=== PATIENT | male | born 1990 | race Caucasian/White ===

== ENCOUNTER 2021-06-28 12:54 | Emergency (ER) | payer OTHER, SELFPAY ==
[2021-06-28 13:00] VITALS: BP 146/102; PULSE 94; RESP 16; TEMP 37.1; O2SAT 100
--- NOTE | 2021-06-28 13:35 | ED.NAVMDI ---
HPI - Nausea/Vomiting/Diarrhea General Chief complaint: Nausea/Vomiting/Diarrhea Stated complaint: stomach pain/vomiting/diarrhea/no energy Time Seen by Provider: 06/28/21 13:30 Source: patient and RN notes reviewed Mode of arrival: ambulatory Limitations: no limitations History of Present Illness HPI Narrative: 30-year-old male presents with concern for 4-day history of body aches, fatigue, chills, sweats, nausea, vomiting, diarrhea, cough. He reports he was out over the weekend around a crowd of people at bars. He reports he has not been vaccinated for Covid. He denies measured fever. Reports he had Covid July 2020. MD elicited complaint: nausea and vomiting Related Data Home Medications Medication Instructions Recorded Confirmed omeprazole 20 mg PO DAILY 06/28/21 06/28/21 Allergies Allergy/AdvReac Type Severity Reaction Status Date / Time No Known Allergies Allergy Mild Verified 06/28/21 13:02 Review of Systems Review of Systems: CONSTITUTIONAL: Reports fatigue, malaise, chills, sweats. Denies fever. EYES: Denies visual changes, redness, or discharge. ENT: Denies rhinorrhea, congestion, sinus pain, otalgia or sore throat. CARDIOVASCULAR: Denies chest pain, palpitations, or edema. RESPIRATORY: Reports cough. Denies dyspnea. GASTROINTESTINAL: Denies abdominal pain, bloody, or mucous stools. Reports nausea, vomiting, diarrhea, MUSCULOSKELETAL: Reports myalgia. NEUROLOGIC: Reports headache. All systems reviewed & are unremarkable except as noted in HPI and below PMFSH Social History Social History Smoking status: Never smoker Alcohol intake: current Comments At time of signature, agree with nursing past medical, surgical, social and family history. There is no relevant family history pertinent to the presenting complaint Exam Narrative: GENERAL: Well-appearing, well-nourished, and in no acute distress. HEAD: Normocephalic, atraumatic. EYES: PERRLA, sclera clear ENT: Nares clear. Mucous membranes moist. TM pearly rodrigues with sharp light reflex bilaterally; no tragal tenderness. Oropharynx without erythema or lesions. Tonsils not enlarged and without exudate. NECK: Supple. No lymphadenopathy. CHEST: No respiratory distress. Clear to auscultation. No bony deformities, no asymmetry. Speaks in full sentences. HEART: Regular rate and rhythm. No murmur heard. Normal peripheral pulses. ABDOMEN: Soft, nontender, nondistended, normal active bowel sounds, no palpable masses. SKIN: Warm, dry, no visible rash. NEURO: Alert and oriented x3. PSYCH: Normal mood and affect Course Course Emergency Course: Patient is aware of diagnosis, understands and agrees to treatment plan. Anticipatory guidance given. Patient agrees to follow-up as directed and is aware of reasons to seek care at the emergency department. Portions of this record may have been created with voice recognition software Vital Signs Vital signs: Vital Signs Temperature 98.8 F 06/28/21 13:00 Pulse Rate 94 06/28/21 13:00 Respiratory Rate 16 06/28/21 13:00 Blood Pressure 146/102 H 06/28/21 13:00 Pulse Oximetry 100 06/28/21 13:00 Temperature 98.8 F 06/28/21 13:00 Pulse Rate 94 06/28/21 13:00 Respiratory Rate 16 06/28/21 13:00 Blood Pressure 146/102 H 06/28/21 13:00 Pulse Oximetry 100 06/28/21 13:00 Reviewed. Pt has been instructed to follow up with his primary care provider within the next week regarding his elevated blood pressure today. MDM - Nausea/Vomiting/Diarrhea MDM Narrative Medical decision making narrative: Differential diagnosis considered: Gastroenteritis, acute abdomen, Beaver virus, strep pharyngitis, allergic rhinitis, upper respiratory tract infection, sinusitis, rhinosinusitis, nasopharyngitis. viral pharyngitis, otitis media, otitis externa, pneumonia, bronchitis, viral cough syndrome, viral syndrome, and influenza. Exam findings show no acute concerns or changes; patient is non-toxic appearing
[2021-06-29 19:38] LABS: SARS-CoV-2 RNA PCR Negative
== END 2021-06-28 13:55 | disposition home or self-care (01) ==
PROVIDERS: Emergency Provider Nurse Practitioner; PCP Family Medicine
DX: B34.9 Viral infection, unspecified (principal); Z20.822 Contact with and (suspected) exposure to COVID-19
CPT/HCPCS: 87426; 99203; C9803; G0463; U0003; U0005

== ENCOUNTER → 2021-08-13 18:35 | Outpatient (CLI) | payer OTHER, SELFPAY ==
--- NOTE | ~2021-08-13 | XR_ITS ---
XR chest 2V DATE: 08/13/2021 19:04 INDICATION: Cough. Smoker. Hypertension. TECHNIQUE: PA and lateral views COMPARISON: None FINDINGS: Normal heart size. No hilar or mediastinal enlargement. No pulmonary infiltrate or consolid ation, pleural effusion or pulmonary vascular congestion or pneumothorax. IMPRESSION: No active cardiopulmonary disease Reviewed, dictated and finalized at location A.
--- NOTE | ~2021-08-13 | XR_ITS ---
XR abdomen/kub 1V DATE: 08/13/2021 19:05 INDICATION: Diarrhea for 4 days, upper abdominal pain, nausea and vomiting TECHNIQUE: 2 AP views COMPARISON: None FINDINGS: The lung bases are clear. Heart size appears normal. Is no evidence of bowel obstruction. T he psoas shadows are intact. No visceromegaly or abnormal calcification is noted. Included skeletal s tructures are unremarkable. IMPRESSION: No significant abnormality Reviewed, dictated and finalized at Location A. Reviewed, dictated and finalized at location A. IMPRESSION: No significant abnormality
== END ==
PROVIDERS: PCP Family Medicine; Visit Provider Family Medicine
DX: R05.9 Cough, unspecified (principal); R19.7 Diarrhea, unspecified; R11.0 Nausea; E66.9 Obesity, unspecified; Z83.3 Family history of diabetes mellitus; Z83.438 Family history of other disorder of lipoprotein metabolism and other lipidemia
CPT/HCPCS: 71046; 74018

== ENCOUNTER → 2021-08-29 08:32 | Outpatient (CLI) | payer OTHER, SELFPAY ==
--- NOTE | ~2021-08-29 | CT_ITS ---
EXAMINATION: CT abdomen pelvis w con DATE: 08/29/2021 09:07 INDICATION: Abdominal pain, generalized. Nausea, vomiting, diarrhea, weight loss. TECHNIQUE: Computed tomography (CT) of the abdomen and pelvis was performed with 100 cc Omnipaque 350 intravenous contrast. Automated exposure control and iterative reconstruction technique were employe d. Exam dose: 1028.75 mGy-cm total exam DLP. COMPARISON: 08/13/2021 KUB 04/26/2009 MRI [facility] FINDINGS: The lung bases are clear of infiltrate or consolidation. Normal heart size. No pericardial or pleural effusion. Diffuse hepatic steatosis. No hepatic space-occupying mass lesion. The gallbladder is unremarkable. N o bile duct or pancreatic duct dilatation. No pancreatic mass lesion or calcification. Normal splenic size. Normal morphology of the adrenal glands. No renal mass lesion or urinary tract calculus or hydroureteronephrosis. Normal caliber of the abdominal aorta. No intraperitoneal or retroperitoneal or pelvic mass lesion or adenopathy or ascites. Normal appendix. There is minimal sigmoid colonic diverticulosis. No bowel obstruction, bowel wall t hickening, pneumatosis or intraperitoneal free air. Very small fat-containing umbilical hernia. Bilateral small fat containing inguinal hernias. No suspicious osteolytic or osteoblastic lesions are noted. IMPRESSION: Hepatic steatosis Minimal sigmoid diverticulosis Reviewed, dictated and finalized at Location A. Reviewed, dictated and finalized at location A. 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
== END ==
PROVIDERS: PCP Family Medicine; Visit Provider Family Medicine
DX: R10.9 Unspecified abdominal pain (principal); R11.0 Nausea; R19.7 Diarrhea, unspecified; Z83.79 Family history of other diseases of the digestive system; R63.4 Abnormal weight loss; K76.0 Fatty (change of) liver, not elsewhere classified; K57.30 Diverticulosis of large intestine without perforation or abscess without bleeding
CPT/HCPCS: 74177; Q9967

== ENCOUNTER → 2023-07-24 10:14 | Outpatient (CLI) | payer OTHER, SELFPAY ==
--- NOTE | ~2023-07-24 | XR_ITS ---
Left foot Technique: AP, oblique, and lateral views were obtained. Clinical History: Pain Findings: No acute fracture or dislocation is seen. Osseous alignment is anatomic. There is moderate degenerative change of the interphalangeal joint of the great toe. Remaining joint spaces are intact. Soft tissues are unremarkable. Impression: Moderate degenerative change of the interphalangeal joint of the great toe. Reviewed, dictated and finalized at location . Impression: Moderate degenerative change of the interphalangeal joint of the great toe.
--- NOTE | ~2023-07-24 | XR_ITS ---
Left ankle Technique: AP, oblique, and lateral views were obtained. Clinical History: Pain Findings: No acute fracture or dislocation is seen. Osseous alignment is anatomic. Ankle mortise and other visualized joint spaces are preserved. Soft tissues are otherwise unremarkable. Impression: Unremarkable left ankle. Reviewed, dictated and finalized at location . Impression: Unremarkable left ankle.
== END ==
PROVIDERS: PCP Family Medicine; Visit Provider Family Medicine
DX: M25.572 Pain in left ankle and joints of left foot (principal); M79.672 Pain in left foot; S99.922A Unspecified injury of left foot, initial encounter; X58.XXXA Exposure to other specified factors, initial encounter
CPT/HCPCS: 73610; 73630

== ENCOUNTER 2023-08-12 10:36 | Outpatient (CLI) | payer OTHER, SELFPAY ==
[2023-08-12 18:42] LABS: Alanine Aminotransferase 65 U/L (6-50); Albumin Level 4.8 g/dL (3.5-5.1); Alkaline Phosphatase 67 U/L (38-126); Anion Gap 5 mmol/L (8-16); Aspartate Amino Transferase 44 U/L (17-59); Bilirubin,Total 0.6 mg/dL (0.2-1.3); Blood Urea Nitrogen 9 mg/dL (9-20); Calcium 9.9 mg/dL (8.4-10.2); Carbon Dioxide 31 mmol/L (22-30); Chloride 103 mmol/L (98-107); Cholesterol 191 mg/dL (0-200); Estimated Glomerular Filt Rate > 60; Glucose 99 mg/dL (65-110); HDL Direct 38 mg/dL; Potassium 4.8 mmol/L (3.4-5.0); Sodium 139 mmol/L (137-145); Triglycerides 172 mg/dL (<150)
[2023-08-12 20:09] LABS: Hematocrit 49.5 % (42.0-52.0); Mean Corpuscular HGB Conc 32.3 g/dl (32-36); Mean Corpuscular Hemoglobin 30.4 pg (26-34); Mean Corpuscular Volume 94.1 fl (80-100); Mean Platelet Volume 10.3 fl (7.4-10.4); Platelet Count Result 236 k/mm3 (150-375); Red Blood Count 5.26 M/mm3 (4.6-6.20); Red Cell Distribution Width 12.9 % (11.5-14.5); White Blood Count 6.5 K/mm3 (4.5-10.0)
[2023-08-12 22:30] LABS: LDL Cholesterol Direct 105 mg/dL
== END 2023-08-12 10:37 | disposition home or self-care (01) ==
LOC: ANHGOSHLAB 10:37
PROVIDERS: PCP Family Medicine; Visit Provider Nurse Practitioner
DX: Z00.00 Encounter for general adult medical examination without abnormal findings (principal)
CPT/HCPCS: 36415; 80053; 80061; 84443; 85027

== ENCOUNTER 2024-06-12 15:28 | Emergency (ER) | payer OTHER, SELFPAY ==
[2024-06-12 15:40] VITALS: BP 134/83; PULSE 63; RESP 16; TEMP 36.1; O2SAT 100
--- NOTE | 2024-06-12 16:05 | ED.WOUNDLAC ---
HPI - Wound/Laceration General Chief Complaint: Wound/Laceration Stated Complaint: Cut Finger Right Hand Source: patient Mode of arrival: ambulatory Limitations: no limitations History of Present Illness HPI narrative: 33 y/o male presented for c/o injury to right middle finger. States he cut the tip of the finger off on a running lawnmower today when he reached to the side to remove debris. Pt applied a towel to the site. 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 Related Data Home Medications Medication Instructions Recorded Confirmed omeprazole 20 mg capsule,delayed 20 mg PO DAILY PRN 10/09/23 01/08/24 release Allergies Allergy/AdvReac Type Severity Reaction Status Date / Time No Known Allergies Allergy Mild Verified 06/12/24 16:08 Review of Systems Review of Systems: ROS per HPI All systems reviewed & are unremarkable except as noted in HPI and below PMFSH Past Medical History Medical History Arthritis GERD (gastroesophageal reflux disease) Hernia Surgical History Surgical History History of ankle surgery Family History Family History Father Diabetes mellitus Hypertension Cancer Mother Thyroid condition Grandparent Alcoholism Diabetes mellitus Hypertension Cerebrovascular accident Social History Social History Years smoked: 7 Smoking status: Former smoker Alcohol intake: current Substance use: current Substance use type: marijuana and crack/cocaine Lack of Transportation: No Lack of Food: Never True Current Housing: I Have Housing Concerned About Future Housing: No Difficulty Paying Gas/Electric Bills: No Difficulty Paying for Meds: No Currently Unemployed: No Education: High School Diploma/GED Difficulty w/ Childcare or Family Care: No Comments At time of signature, I have reviewed and agree with nursing past medical, surgical, social and family history unless otherwise noted. Please see nursing chart for further information. There is no relevant family history pertinent to the presenting complaint Exam Narrative: GENERAL: appears in pain, stable in no acute distress. CHEST: Speaks in full sentences. No respiratory distress. HEART: Regular rate and rhythm. Normal and equal peripheral pulses. EXTREMITIES: Right 3rd digit distal phalanx amputation across nail, bone exposed. Limited movement of the hand due to the pain of the 3rd digit. pulse palpable and equal bilaterally, skin warm, dry, pink. Capillary refill less than 3 seconds to hand. SKIN: Warm, dry NEURO: Alert and oriented x3. Extrem: Hand/finger images: 1. location of amputation right 3rd digit Course Course Emergency Course: Patient is aware of diagnosis, understands and agrees to treatment plan. Anticipatory guidance given. Patient agrees to follow-up as directed and is aware of reasons to seek care at the emergency department. Portions of this record may have been created with voice recognition software Level of Care: Express Care Visit Vital Signs Vital signs: Vital Signs Temperature 97 F L 06/12/24 15:40 Pulse Rate 63 06/12/24 15:40 Respiratory Rate 16 06/12/24 15:40 Blood Pressure 134/83 06/12/24 15:40 Pulse Oximetry 100 06/12/24 15:40 Temperature 97 F L 06/12/24 15:40 Pulse Rate 63 06/12/24 15:40 Respiratory Rate 16 06/12/24 15:40 Blood Pressure 134/83 06/12/24 15:40 Pulse Oximetry 100 06/12/24 15:40 Reviewed Transfer Transfered to: [facility] Transportation: Other (Private vehicle) Transfer rationale: Pt is agreeable to transfer. Requests transfer to [facility] via private vehicle. Risks of transportation reviewed with pt including injury
== END 2024-06-12 16:15 | disposition short-term general hospital (02) ==
PROVIDERS: Emergency Provider Nurse Practitioner Family; PCP Family Medicine
DX: S68.622A Partial traumatic transphalangeal amputation of right middle finger, initial encounter (principal); W28.XXXA Contact with powered lawn mower, initial encounter; M19.90 Unspecified osteoarthritis, unspecified site; K21.9 Gastro-esophageal reflux disease without esophagitis; Z87.891 Personal history of nicotine dependence; F12.90 Cannabis use, unspecified, uncomplicated; F14.90 Cocaine use, unspecified, uncomplicated
CPT/HCPCS: 99212; G0463

== ENCOUNTER 2024-11-22 10:40 | Outpatient (CLI) | payer OTHER, SELFPAY ==
--- OUTSIDE RECORDS SUMMARY | 2024-11-22 11:30 | XMS_ITS | Clinical Summary ---
Author Organization [facility] Address [address] [place] [address] Phone Care Team Providers Care Puddler Pile Driving Name Role Phone Unavailable Unavailable Unavailable Reason for Visit and Chief Complaint [Patient Encounter] Problems Includes: Problems addressed during this encounter and other active Problems All Visits Onset Date Resolved Date Provider Condition S tatus Attention Deficit Disorder W ithout Hyperactivity 01/11/2015 Active Last Documented On 3 5:48PM ; [facility] Bipolar II Disorder 01/11/2015 Activ e Last Documented On 3 5:48PM ; [facility] Esophageal Reflux 01/11/2015 Active Last Documented On 3 5:48PM ; [facility] Generalized Anxiety Disorder 01/11/2015 Active Last Documented On 3 5:48PM ; [facility] Persistent Insomnia 01/11/2015 Activ e Last Documented On 3 5:48PM ; [facility] Psychotic Disorder 01/11/2015 Active Last Documented On 3 5:48PM ; [facility] Depression 07/13/2014 Active Last Documented On 3 5:48PM ; [facility] Plan of Treatment No Plan of Treatment Recorded Assessments Includes: Assessments from this encounter No Assessments Recorded Medical Equipment - Implanted Devices Includes: Current Devices No Medical Equipment Recorded Medications Includes: Medications discussed during this encounter and other current Medications Current Medications (continue as prescribed) Focalin 10 MG OR TABS 04/19/2015 Provider: BARRERA TORREZ MD Diagnosis: ATTN DEFIC NONHY PERACT 1 tablet every morning Last Documented On 02/08/2023 5:37PM By Lizeth Torrez MD ; [facility] Methylphenidate HCl 20 MG OR TABS 04/19/2015 Provider: HITESH TORREZ MD Diagnosis: ATTN DEFIC NONHY PERACT 1 tablet every morning Last Documented On 02/08/2023 5:37PM By Lizeth Torrez MD ; [facility] Depakote ER 500 MG OR TB24 04/19/2015 Provider: Mirella TORREZ MD Diagnosis: BIPOLAR DISORDER NEC as directed -- 1 tab at nigh t -- may try 1/2 tab at night first before taking 1 at night --given 40 tablets Last Documented On 02/08/2023 5:37PM By Lizeth Torrez MD ; [facility] traZODone HCl 50 MG OR TABS 04/19/2015 Provider: HITESH TORREZ MD Diagnosis: PERSISTENT INSOM HAYDEE as directed -- half to one t ablet at bedtime as needed for sleep. Last Documented On 02/08/2023 5:37PM By Lizeth Torrez MD ; [facility] Focalin 10 MG OR TABS 03/20/2015 Provider: BARRERA TORREZ MD Diagnosis: ATTN DEFIC NONHY PERACT 1 tablet every morning Last Documented On 02/08/2023 5:37PM By Lizeth Torrez MD ; [facility] SEROquel XR 50 MG OR TB24 03/20/2015 Provider: ME OSMAN TORREZ MD Diagnosis: BIPOLAR DISORDER NEC 1 every evening with out food Last Documented On 02/08/2023 5:37PM By Lizeth Torrez MD ; [facility] NexIUM 40 MG OR CPDR 01/11/2015 Provider: Diagnosis: 1 daily as needed Last Documented On 02/08/2023 5:37PM By CRYSTAL BLANCO LPN ; [facility] Claritin 10 MG OR TABS 01/11/2015 Provider: Diagnosis: 1 tablet daily as needed Last Documented On 02/08/2023 5:37PM By CRYSTAL BLANCO LPN ; [facility] One-A-Day Mens OR TABS 01/11/2015 Provider: Diagnosis: Last Documented On 02/08/2023 5:37PM By CRYSTAL BLANCO LPN ; [facility] Lexapro 20 MG OR TABS 01/11/2015 Provider: BARRERA TORREZ MD Diagnosis: GENERALIZED ANXI ETY DIS as directed --1/2 tab a day for 1 week then 1 tab a day thereafter Last Documented On 02/08/2023 5:37PM By Lizeth Torrez MD ; [facility] Medications Administered Includes: Administered Medications from this encounter No Administered Medications Recorded Vital Signs Includes: Vital Signs from this encounter Vital Name 01/11/2015 10:33A Blood Pressure Sitting (mmHg) 120/80 BP Cuff Size Regular Pulse Rate-Sitting (bpm) 80 Pulse Rhythm Regular Height (in) 69 Weight (lb) 182 Body Mass Index (kg/m2) 26.9 Body Surface Area (m2) 2.0 Last Documented: On 02/08/2023 5:55PM ; [facility] Results Includes: Results discussed during this encounter No Results Recorded For Specified Dates History of Present Illness Includes: History of Present Illness from this encounter No History of Present Illness Recorded Social History No Social History Recorded - Smoking Status Unknown Medical History Includes: Medical History addressed during this encounter No Medical History Recorded Family History Includes: Family History addressed during this encounter No Family History Recorded Review of Systems Includes: Review of Systems from this encounter No Review of Systems Recorded Mental Status Includes: Mental Status from this encounter No Mental Status Recorded Functional Status Includes: Functional Status from this encounter No Functional Status Recorded Physical Exam Includes: Physical Exam from this encounter No Physical Exam Recorded Allergies Includes: Active Allergies No Known Allergies Encounters Encounter Provider Location Date Check-In Time Check-Out Time Diagnosis [Patient Encounter] 01/11/2015 12:00AM 11:59PM Clinical Notes Includes: Clinical Notes from this encounter No Clinical Notes Recorded
--- OUTSIDE RECORDS SUMMARY | 2024-11-22 11:30 | XMS_ITS ---
Care Plan - [facility] Group S Created on: November 22, 2024 DAVID MANUEL : 1990 Sex: Male Author Organization [facility] Medical [facility] Address [address] [place] [phone] Phone Care Team Providers Care Accounts Receivable Associate Name Role Phone Unavailable Unavailable Unavailable
--- OUTSIDE RECORDS SUMMARY | 2024-11-22 11:30 | XMS_ITS | Patient Health Summary ---
Author Organization [facility] [employer] Address [address] [place] [address] Care Team Providers Care Motorcycle Designer Name Role Phone Unavailable Primary Care Provider Unavailabl e Note from [facility],non-owned Affiliates and Associated Physician Practices is amultiple site organization consisting of ambulatory clinics and hospital sitesin [place], [place], [place] and [place]. This disclosure is being madepursuant to the Care Everywhere program and may not contain all information available regarding this patient. Last updated 18.[facility] [employer] Allergies No known active allergies Medications Be aware that medications may not be up to date on this document. Always verify current medications with the patient. No known medications Active Problems Problem Noted Date Diagnosed Date Depression 05/03/2019 Social History Tobacco Use Types Packs/Day Years Used Date Smoking Tobacco: Never Smokeless Tobacco: Never Sex and Gender Information Value Date Recorded Sex Assigned at Not on file Gender Identity Not on file Sexual Orientation Not on file Last Filed Vital Signs Vital Sign Reading Time Taken Comments Blood Pressure 149/98 05/03/2019 1:49 PM CDT Pulse 109 05/03/2019 1:49 PM CDT Temperature 36.4 C (97.6 F) 05/03/2019 1:49 PM CDT Respiratory Rate 17 05/03/2019 1:49 PM CDT Oxygen Saturation 100% 05/03/2019 1:49 PM CDT Inhaled Oxygen Concentration - - Weight 91.6 kg (202 lb) 05/03/2019 11:06 AM CDT Height 177.8 cm (5' 10 ) 05/03/2019 11:06 AM CDT Body Mass Index 28.98 05/03/2019 11:06 AM CDT Procedures * CARDIAC EKG ORDER(Performed 05/04/2019) * ALCOHOL ETHYL BLOOD(Performed 05/03/2019) * ED CRITICAL CARE(Performed 05/03/2019) Performed for Agitation requiring sedation protocol * EKG 12-LEAD(Performed 05/02/2019) Performed for Agitation requiring sedation protocol Results * CARDIAC EKG ORDER (05/04/2019 9:28 PM CDT) Narrative 05/04/2019 9:28 PM CDT Ordered by an unspecified provider. Scanned Document CARDIAC SERVICES ORD ERABLES * (ABNORMAL) ALCOHOL ETHYL BLOOD (05/03/2019 4:34 AM CDT) [facility] Ethanol 203.5(H) <10 mg/dL 05/03/2019 4:56 AM CDT [facility] Ethanol Calculated 0.204(H) <=0.100 gm/dL 05/03/2019 4:56 AM CDT [facility] Blood BLOOD SPECIMEN / Unknown Venipuncture / Unknown 05/03/2019 4:34 AM CDT 05/03/2019 4:41 AM CDT Narrative [facility] - 05/03/2019 4:56 AM CDT Non Legal Serum Alcohol Paula Rodriguez MD LAB - CHEMISTRY [facility] [address] [place] [id number] * ED CRITICAL CARE (05/03/2019 12:28 AM CDT) Narrative Lola Byers MD - 05/03/2019 12:28 AM CDT Lola Byers MD 05/03/2019 12:28 AM Critical Care Performed by: LOLA BYERS Authorized by: LOLA BYERS Critical care provider statement: Critical care time (minutes): 35 Critical care time was exclusive of: Separately billable procedures and treating other patients Critical care was necessary to treat or prevent imminent or life-threatening deterioration of the following conditions: Agitation requiring sedation. Critical care was time spent personally by me on the following activities: Development of treatment plan with patient or surrogate, evaluation of patient's response to treatment, examination of patient, obtaining history from patient or surrogate, ordering and performing treatments and interventions, ordering and review of laboratory studies, ordering and review of radiographic studies, re-evaluation of patient's condition, review of old charts, pulse oximetry and blood draw for specimens Lola Byers MD PROCEDURE/MINOR SURG ICAL ORDERABLES * EKG 12-LEAD (05/02/2019 9:08 PM CDT) Ventricular Rate 93 BPM [facility] Atrial Rate 93 BPM [facility] P-R Interval 152 ms [facility] QRS Duration ms 84 ms [facility] Q-T Interval ms 332 ms [facility] QTC Calculation (Bezet) 412 ms [facility] Calculated P Creola 33 degrees [facility] Calculated R Creola 18 degrees [facility] Calculated T Creola 39 degrees [facility] Interpretation EKG Normal sinus rhythm Nonspecific ST and T wave abnormality Abnormal ECG No previous ECGs available Confirmed by Eyal Singh ([id number]) on 05/03/2019 2:35:21 PM [facility] 05/02/2019 9:08 PM CDT 05/03/2019 2:35 PM CDT Lola Byers MD ECG ORDERABLES [facility]
--- OUTSIDE RECORDS SUMMARY | 2024-11-22 11:30 | XMS_ITS | Clinical Summary ---
Author Organization [facility] [employer] Address [address] [place] [address] Care Team Providers Care Quality Assurance Auditor Name Role Phone Unavailable Primary Care Provider Unavailabl e Source Comments [facility] [employer],non-owned Affiliates and Associated Physician Practices is amultiple site organization consisting of ambulatory clinics and hospital sitesin [place], [place], [place] and [place]. This disclosure is being madepursuant to the Care Everywhere program and may not contain all information available regarding this patient. Last updated 18.[facility] [employer] Allergies No known active allergies Medications Be [...] Mass Index 28.98 05/03/2019 11:06 AM CDT Plan of Treatment Health Maintenance Due Date Last Done Comments HIV SCREENING 2004 HEPATITIS C SCREENING 09/19/2007 DTAP/TDAP/TD VACCINES (1 - Tdap) 2008 HEPATITIS B VACCINE (1 of 3 - 19+ 3-dose series) 2008 COVID-19 VACCINE (1 - 2023-2 5 season) 2024 INFLUENZA VACCINE (#1) 2024 DEPRESSION SCREENING 10/13/2024 ZOSTER VACCINE (1 of 2) 2039 HIB VACCINE Aged Out No longer eligi ble based on patient's age to complete this topic HPV VACCINE Aged Out No longer eligi ble based on patient's age to complete this topic MENINGOCOCCAL (Group B) VACCINE Aged Out No longer eligible based on patient's age to complete this topic MENINGOCOCCAL VACCINE Aged Out No amy susan eligible based on patient's age to complete this topic PNEUMOCOCCAL VACCINE Aged Out No long er eligible based on patient's age to complete this topic Advance Directives * Full Code (Latest Code Status on File) Date Activated Date Inactivated Comments 05/03/2019 8:33 AM 05/03/2019 6:09 PM
--- OUTSIDE RECORDS SUMMARY | 2024-11-22 11:30 | XMS_ITS | Referral Summary ---
Author Organization [facility] Address [address] [place] [address] Care Team Providers Care Water Quality Tester Name Role Phone Unavailable Primary Care Provider Unavailabl e Source Comments [facility],non-owned Affiliates and Associated Physician Practices is amultiple site organization consisting of ambulatory clinics and hospital sitesin [place], [place] and [place]. This disclosure is being madepursuant to the Care Everywhere program and may not contain all information available regarding this patient. Last updated 18.[facility] Allergies No known active allergies Medications Be [...] Mass Index 28.98 05/03/2019 11:06 AM CDT Functional Status Functional Status Response Date of Assess ment Is person deaf or have serious hearing difficult y? No 05/03/2019 Is person blind or have serious difficulty seein g? No 05/03/2019 Does person have serious dif ficulty walking/climbing stairs? No 05/03/2019 Does person have difficulty dressing/bathing? No 05/03/2019 Does person have difficulty doing errands alone? No 05/03/2019 Cognitive Status Response Date of Assessm ent Does person have difficulty concentrating/remembering/making decisions? No 05/03/2019 Plan of Treatment Not on file Advance Directives * Full Code (Latest Code Status on File) Date Activated Date Inactivated Comments 05/03/2019 8:33 AM 05/03/2019 6:09 PM
--- OUTSIDE RECORDS SUMMARY | 2024-11-22 11:30 | XMS_ITS | Clinical Summary ---
Author Organization [facility] [[email or web address] Address [address] [place] [address] Phone Care Team Providers Care Loading Unit Tool Setter Name Role Phone Unavailable Unavailable Unavailable Reason for Visit and Chief Complaint [Patient Encounter] Problems Includes: Problems addressed during this encounter and other active Problems All Visits Onset Date Resolved Date Provider Condition S tatus Attention Deficit Disorder W ithout Hyperactivity 01/11/2015 Active Last Documented On 3 5:48PM ; [facility] Bipolar II Disorder 01/11/2015 Activ e Last Documented On 3 5:48PM ; [facility] Esophageal Reflux 01/11/2015 Active Last Documented On 3 5:48PM ; [facility] Generalized Anxiety Disorder 01/11/2015 Active Last Documented On 3 5:48PM ; [facility] Persistent Insomnia 01/11/2015 Activ e Last Documented On 3 5:48PM ; [facility] Psychotic Disorder 01/11/2015 Active Last Documented On 3 5:48PM ; [facility] Depression 07/13/2014 Active Last Documented On 3 5:48PM ; [facility] Plan of Treatment No Plan of Treatment [...] 02/08/2023 5:37PM By Lizeth Torrez MD ; [facility] Methylphenidate HCl 20 MG OR TABS 04/19/2015 Provider: HITESH TORREZ MD Diagnosis: ATTN DEFIC NONHY PERACT 1 tablet every morning Last Documented On 02/08/2023 5:37PM By Lizeth Torrez MD ; [facility] Depakote ER 500 MG OR TB24 04/19/2015 Provider: Mirella TORREZ MD Diagnosis: BIPOLAR DISORDER NEC as directed -- 1 tab at nigh t -- may try 1/2 tab at night first before taking 1 at night --given 40 tablets Last Documented On 02/08/2023 5:37PM By Lizeth Torrez MD ; [facility] traZODone HCl 50 MG OR TABS 04/19/2015 Provider: HITESH TORREZ MD Diagnosis: PERSISTENT INSOM HAYDEE as directed -- half to one t ablet at bedtime as needed for sleep. Last Documented On 02/08/2023 5:37PM By Lizeth Torrez MD ; [facility] Focalin 10 MG OR TABS 03/20/2015 Provider: BARRERA TORREZ MD Diagnosis: ATTN DEFIC NONHY PERACT 1 tablet every morning Last Documented On 02/08/2023 5:37PM By Lizeth Torrez MD ; [facility] SEROquel XR 50 MG OR TB24 03/20/2015 Provider: ME OSMAN TORREZ MD Diagnosis: BIPOLAR DISORDER NEC 1 every evening with out food Last Documented On 02/08/2023 5:37PM By Lizeth Torrez MD ; [facility] NexIUM 40 MG OR CPDR 01/11/2015 Provider: Diagnosis: 1 daily as needed Last Documented On 02/08/2023 5:37PM By CRYSTAL BLANCO LPN ; [facility] Claritin 10 MG OR TABS 01/11/2015 Provider: Diagnosis: 1 tablet daily as needed Last Documented On 02/08/2023 5:37PM By CRYSTAL BLANCO LPN ; [facility] One-A-Day Mens OR TABS 01/11/2015 Provider: Diagnosis: Last Documented On 02/08/2023 5:37PM By CRYSTAL BLANCO LPN ; [facility] Lexapro 20 MG OR TABS [...] Vital Signs from this encounter Vital Name 04/19/2015 04:04P Blood Pressure Sitting (mmHg) 110/76 BP Cuff Size Large Pulse Rate-Sitting (bpm) 76 Pulse Rhythm Regular Height (in) 69 Weight (lb) 184 Body Mass Index (kg/m2) 27.2 Body Surface Area (m2) 2.0 Last Documented: On 02/08/2023 5:55PM ; [facility] Results Includes: Results discussed during [...] Check-In Time Check-Out Time Diagnosis [Patient Encounter] 04/19/2015 12:00AM 11:59PM Clinical Notes Includes: Clinical Notes from this encounter No Clinical Notes Recorded
--- OUTSIDE RECORDS SUMMARY | 2024-11-22 11:31 | XMS_ITS ---
Care Plan - [facility] Created on: November 22, 2024 DAVID MANUEL : 1990 Sex: Male Author Organization [facility] Address [address] [place] [address] Phone Care Team Providers Care Office Worker Name Role Phone Unavailable Unavailable Unavailable
--- OUTSIDE RECORDS SUMMARY | 2024-11-22 11:31 | XMS_ITS ---
Author Organization [facility] Address [address] [place] [phone] Phone Care Team Providers Care Facility Maintenance Mechanic Name Role Phone Unavailable Unavailable Unavailable Reason for Referral Date Encounter Description Provider Reason for Referral 04/19/15 GENERAL OFFICE VISIT HITESH TORREZ MD Request Consultation By Mental Health Counselor - -- continue seeing Sidney Lopez 03/15/15 GENERAL OFFICE VISIT HITESH TORREZ MD Request Consultation By Mental Health Counselor 01/11/15 [facility] HITESH TORREZ MD Request Consultation By Mental Health Counselor - --referred to Sidney Lopez for anger mgt Problems Includes: Active, inactive, and resolved Problems All Visits Onset Date Resolved Date Provider Condition S tatus Attention Deficit Disorder Without Hyperactivity 01/11/2015 HITESH TORREZ MD Active Last Documented On 5 10:31AM ; [facility] Bipolar II Disorder 01/11/2015 HITESH JAY MD Active Last Documented On 5 9:55AM ; [facility] Esophageal Reflux 01/11/2015 HITESH Sahu MD Active Last Documented On 5 10:15AM ; [facility] Generalized Anxiety Disorder 01/11/2015 HITESH TORREZ MD Active Last Documented On 5 10:14AM ; [facility] Persistent Insomnia 01/11/2015 HITESH JAY MD Active Last Documented On 5 9:55AM ; [facility] Psychotic Disorder 01/11/2015 HITESH OLIVIA MD Active Last Documented On 5 10:32AM ; [facility] Depression 07/13/2014 HITESH TORREZ MD Ac tive Last Documented On 5 10:20AM ; [facility] Plan of Treatment Education and Decision Aids were provided during visit for: Patient education about medi cation --- I educated patient on medication(s) and diagnosis. I reviewed the risks, benefits and side effects of patient's medications. --trazodone, depakote er including the boxed warning on liver that is why the need for periodic lab monitoring Last Documented On 5 9:48AM ; [facility] Discussed calming techniques such as breathing exercises/meditation and other relaxation techniques Last Documented On 5 3:53PM ; [facility] Counseling for nutrition/yuri ght management provided Last Documented On 5 9:48AM ; [facility] Patient education about medi cation --- I educated patient on medication(s) and diagnosis. I reviewed the risks, benefits and side effects of patient's medications Last Documented On 5 2:58AM ; [facility] Discussed calming techniques such as breathing exercises/meditation and other relaxation techniques Last Documented On 5 3:43PM ; [facility] Counseling for nutrition/yuri ght management provided Last Documented On 5 2:58AM ; [facility] Discussed good sleep hygiene habits Last Documented On 5 2:58AM ; [facility] Patient education about medi cation --- I educated patient on medication(s) and diagnosis. I reviewed the risks, benefits and side effects of patient's medications Last Documented On 5 7:45PM ; [facility] Discussed calming techniques such as breathing exercises/meditation and other relaxation techniques Last Documented On 5 9:51AM ; [facility] Assessments Includes: Assessments for all patient encounters Findings Encounter Date Attention deficit disorder w ithout hyperactivity GENERAL OFFICE VISIT with HITESH TORREZ MD 04/19/2015 Last Documented On 5 9:54AM ; [facility] Bipolar II disorder GENERAL OFFICE VISIT with ME OSMAN TORREZ MD 04/19/2015 Last Documented On 5 9:54AM ; [facility] Depression GENERAL OFFICE VISIT with BARRERA TORREZ MD 04/19/2015 Last Documented On 5 9:54AM ; [facility] Generalized anxiety disorder GENERAL OFF ICE VISIT with HITESH TORREZ MD 04/19/2015 Last Documented On 5 9:54AM ; [facility] Persistent insomnia GENERAL OFFICE VISIT with ME OSMAN TORREZ MD 04/19/2015 Last Documented On 5 9:54AM ; [facility] Psychotic disorder GENERAL OFFICE VISIT with MET DARRYN TORREZ MD 04/19/2015 Last Documented On 5 9:54AM ; [facility] Attention deficit disorder w ithout hyperactivity GENERAL OFFICE VISIT with HITESH TORREZ MD 03/15/2015 Last Documented On 5 3:03AM ; [facility] Bipolar II disorder GENERAL OFFICE VISIT with ME OSMAN TORREZ MD 03/15/2015 Last Documented On 5 3:03AM ; [facility] Depression GENERAL OFFICE VISIT with BARRERA TORREZ MD 03/15/2015 Last Documented On 5 3:03AM ; [facility] Generalized anxiety disorder GENERAL OFF ICE VISIT with HITESH TORREZ MD 03/15/2015 Last Documented On 5 3:03AM ; [facility] Persistent insomnia GENERAL OFFICE VISIT with ME OSMAN TORREZ MD 03/15/2015 Last Documented On 5 3:03AM ; [facility] Psychotic disorder GENERAL OFFICE VISIT with MET DARRYN TORREZ MD 03/15/2015 Last Documented On 5 3:03AM ; [facility] Bipolar II disorder * PHONE CALL with HITESH TORREZ MD 02/21/2015 Last Documented On 5 7:46PM ; [facility] Attention deficit disorder w ithout hyperactivity [facility] with HITESH TORREZ MD 01/11/2015 Last Documented On 5 10:24AM ; [facility] Bipolar II disorder NEW [facility]IOR[facility] with SUMAN TORREZ MD 01/11/2015 Last Documented On 5 10:24AM ; [facility] Depression NEW PT BEHAVIORAL with HITESH TORREZ MD 01/11/2015 Last Documented On 5 10:24AM ; [facility] Generalized anxiety disorder NEW PT [facility]HAVIORAL w belle HITESH TORREZ MD 01/11/2015 Last Documented On 5 10:24AM ; [facility] Persistent insomnia [facility] BEHAVIORAL with SUMAN TORREZ MD 01/11/2015 Last Documented On 5 10:24AM ; [facility] Psychotic disorder NEW PT BEHAVIORAL with BARRERA TORREZ MD 01/11/2015 Last Documented On 5 10:24AM ; [facility] Instructions Includes: Instructions for all patient encounters Education and Decision Aids were provided during visit for: Patient education about medi cation --- I educated patient on medication(s) and diagnosis. I reviewed the risks, benefits and side effects of patient's medications. --trazodone, depakote er including the boxed warning on liver that is why the need for periodic lab monitoring Last Documented On 5 9:48AM ; [facility] Discussed calming techniques such as breathing exercises/meditation and other relaxation techniques Last Documented On 5 3:53PM ; [facility] Counseling for nutrition/yuri ght management provided Last Documented On 5 9:48AM ; [facility] Patient education about medi cation --- I educated patient on medication(s) and diagnosis. I reviewed the risks, benefits and side effects of patient's medications Last Documented On 5 2:58AM ; [facility] Discussed calming techniques such as breathing exercises/meditation and other relaxation techniques Last Documented On 5 3:43PM ; [facility] Counseling for nutrition/yuri ght management provided Last Documented On 5 2:58AM ; [facility] Discussed good sleep hygiene habits Last Documented On 5 2:58AM ; [facility] Patient education about medi cation --- I educated patient on medication(s) and diagnosis. I reviewed the risks, benefits and side effects of patient's medications Last Documented On 5 7:45PM ; [facility] Discussed calming techniques such as breathing exercises/meditation and other relaxation techniques Last Documented On 5 9:51AM ; [facility] Medical Equipment - Implanted Devices Includes: Current and historical Devices No Medical Equipment Recorded Medications Includes: Current and historical Medications Current Medications (continue as prescribed) TraZODone HCl 50 MG Tablet 04/19/2015 Provider: Mirella TORREZ MD Diagnosis: PERSISTENT INSOM HAYDEE as directed -- half to one t ablet at bedtime as needed for sleep. Last Documented On 04/19/2015 4:37PM By Lizeth Torrez MD ; [facility] Focalin 10 MG Tablet 04/19/2015 Provider: HITESH TORREZ MD Diagnosis: ATTN DEFIC NONHY PERACT 1 tablet every morning Last Documented On 04/19/2015 4:14PM By Lizeth Torrez MD ; [facility] Methylphenidate HCl 20 MG Tablet 04/19/2015 Provider: HITESH TORREZ MD Diagnosis: ATTN DEFIC NONHY PERACT 1 tablet every morning Last Documented On 04/19/2015 4:25PM By Lizeth Torrez MD ; [facility] Depakote ER 500 MG Tablet, extended-release 24 hour 04/19/2015 Provider: HITESH MATUTE MD Diagnosis: BIPOLAR DISORDER NEC as directed -- 1 tab at nigh t -- may try 1/2 tab at night first before taking 1 at night --given 40 tablets Last Documented On 04/19/2015 4:41PM By Lizeth Torrez MD ; [facility] SEROquel XR 50 MG Tablet, extended-release 24 hour 03/20/2015 Provider: HITESH MATUTE MD Diagnosis: BIPOLAR DISORDER NEC 1 every evening with out food Last Documented On 03/20/2015 2:37AM By Lizeth Torrez MD ; [facility] Focalin 10 MG Tablet 03/20/2015 Provider: HITESH TORREZ MD Diagnosis: ATTN DEFIC NONHY PERACT 1 tablet every morning Last Documented On 03/20/2015 2:37AM By Lizeth Torrez MD ; [facility] One-A-Day Mens Tablet 01/11/2015 Provider: Diagnosis: Last Documented On 5 10:17AM By CRYSTAL BLANCO LPN ; [facility] Lexapro 20 MG Tablet 01/11/2015 Provider: HITESH TORREZ MD Diagnosis: GENERALIZED ANXI ETY DIS as directed --1/2 tab a day for 1 week then 1 tab a day thereafter Last Documented On 01/11/2015 1:48PM By Lizeth Torrez MD ; [facility] Claritin 10 MG Tablet 01/11/2015 Provider: Diagnosis: 1 tablet daily as needed Last Documented On 5 10:17AM By CRYSTAL BLANCO LPN ; [facility] NexIUM 40 MG Capsule, delayed-release 01/11/2015 Pro vider: Diagnosis: 1 daily as needed Last Documented On 5 10:16AM By CRYSTAL BLANCO LPN ; [facility] Past Medications on file TraZODone HCl 50 MG Tablet 03/15/2015 - 04/19/2015 Provider: HITESH JAY MD Diagnosis: PERSISTENT INSOM HAYDEE as directed -- half to one t ablet at bedtime as needed for sleep. Last Documented On 04/19/2015 4:37PM By Lizeth Torrez MD ; [facility] SEROquel XR 50 MG Tablet, extended-release 24 hour 02/21/2015 - 03/15/2015 Provider: HITESH TORREZ MD Diagnosis: BIPOLAR DISORDER NEC 1 every evening with out mark d --per pharmacist $25 copay Last Documented On 03/20/2015 2:37AM By Lizeth Torrez MD ; [facility] Focalin 10 MG Tablet 01/11/2015 - 03/15/2015 Provider: HITESH TORREZ MD Diagnosis: ATTN DEFIC NONHY PERACT 1 tablet every morning Last Documented On 03/20/2015 2:37AM By Lizeth Torrez MD ; [facility] TraZODone HCl 50 MG Tablet 01/11/2015 - 03/15/2015 Provider: HITESH JAY MD Diagnosis: PERSISTENT INSOM HAYDEE as directed -- half to one t ablet at bedtime as needed for sleep. Last Documented On 03/15/2015 4:59PM By Lizeth Torrez MD ; [facility] Medications Administered Includes: Administered Medications in patient's chart No Administered Medications Recorded Results Includes: Results from 11/22/2023 through 11/22/2024 No Results Recorded For Specified Dates History of Present Illness History of Present Illness not supported for this document type No History of Present Illness Recorded Social History Description Last Updated Single He lives with his gir christian and their 3 month old son. This is the reason why he stopped using marijuana and illicit drugs because of his son. He was born in [place], [place] and raised in [place], [place]. He is close to both of his parents and they were supportive of him while he was growing up. He denied any history of physical,verbal, or sexual abuse. He has a high school education. 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 He went to community college but he got overwhelmed and so he quit. 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 Legal history he had DWI at age 21 and was charged for Possession of marijuana at least 3 times. He also reported a history of being arrested 4 times with spending a few hours in long term each time. He has been on probation. Interests and hobbies: sports. Faith background: [employer]. Nutritional history: patient eats unhealthy food. He denied abusing laxatives, diuretics, usage of diet pills. No history of binging or purging 01/15/2015 Last Documented On 5 10:24AM ; [facility] Drug use He self medicated w ith illicit drugs when he was younger. He started smoking a lot of marijuana at age 12. Last use was October 16, 2014. However, he admitted to using Marijuana last Wednesday January 07, 2015. He also has a history of cocaine use. He used two times a week starting at age 18. Last use was October 2014 01/15/2015 Last Documented On 5 10:24AM ; [facility] Alcohol use He self medicate d with alcohol when he was younger. He abused alcohol since age 11 maybe once a week. 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 [email or web address] 01/11/2015 Last Documented On 5 10:24AM ; [facility] No tobacco use 01/11/2015 Last Documented On 5 10:24AM ; [facility] Procedures and Surgical History Surgical History Last Updated No history of Prior Surgery: 01/11/2015 Last Documented On 5 10:24AM ; [facility] Medical History Includes: Medical History in patient's chart Description Last Updated History of allergic rhinitis 01/12/2015 Last Documented On 5 10:24AM ; [facility] History of GERD 01/11/2015 Last Documented On 5 10:24AM ; [facility] Primary Care Provider: Dr. Balaji Carrillo 01/11/2015 Last Documented On 5 10:24AM ; [facility] Family History Includes: Family History in patient's chart Description Last Updated Maternal aunt's history of A lzheimer disease ,cocaine abuse and alcoholism-- great aunt 04/19/2015 Last Documented On 5 9:54AM ; [facility] Maternal uncle's history of depression , alcoholism and suicide-- uncle 04/19/2015 Last Documented On 5 9:54AM ; [facility] Maternal aunt's history of alcoholism -- aunt 01/13/2015 Last Documented On 5 10:24AM ; [facility] Maternal aunt's history of cocaine abuse -- aunt 01/13/2015 Last Documented On 5 10:24AM ; [facility] Maternal uncle's history of alcoholism - - uncle 01/13/2015 Last Documented On 5 10:24AM ; [facility] Maternal history of depression -- mother 01/13/2015 Last Documented On 5 10:24AM ; [facility] Maternal uncle's history of due to suicide -- uncle hung himself 01/11/2015 Last Documented On 5 10:24AM ; [facility] Review of Systems Review of Systems not supported for this document type No Review of Systems Recorded Mental Status No Mental Status Recorded Functional Status No Functional Status Recorded Physical Exam Physical Exam not supported for this document type No Physical Exam Recorded Allergies Includes: Active, inactive, and resolved Allergies No Known Allergies Clinical Notes Includes: Signed Clinical Notes starting from 11/01/2022 No Clinical Notes Recorded
--- OUTSIDE RECORDS SUMMARY | 2024-11-22 11:31 | XMS_ITS | Clinical Summary ---
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 Name Role Phone Unavailable Unavailable Unavailable Reason for Referral Date Encounter Description Provider Reason for Referral 03/15/15 GENERAL OFFICE VISIT HITESH TORREZ MD Request Consultation By Mental Health Counselor Reason for Visit and Chief Complaint The Chief Complaint is: Bipolar and Anger issues Problems Includes: Problems addressed during this encounter and other active Problems Current Visit Onset Date Resolved Date Provider Conditio n Status Attention Deficit Disorder Without Hyperactivity 01/11/2015 HITESH TORREZ MD Active Last Documented On 5 10:31AM ; [facility] Bipolar II Disorder 01/11/2015 HITESH JAY MD Active Last Documented On 5 9:55AM ; [facility] Generalized Anxiety Disorder 01/11/2015 HITESH TORREZ MD Active Last Documented On 5 10:14AM ; [facility] Persistent Insomnia 01/11/2015 HITESH JAY MD Active Last Documented On 5 9:55AM ; [facility] Psychotic Disorder 01/11/2015 HITESH OLIVIA MD Active Last Documented On 5 10:32AM ; [facility] Depression 07/13/2014 HITESH TORREZ MD Ac tive Last Documented On 5 10:20AM ; [facility] Past Visits Onset Date Resolved Date Provider Condition Status Esophageal Reflux 01/11/2015 HITESH Sahu MD Active Last Documented On 5 10:15AM ; [facility] Plan of Treatment Education and Decision Aids were provided during visit for: Patient education about medi cation --- I educated patient on medication(s) and diagnosis. I reviewed the risks, benefits and side effects of patient's medications Last Documented On 5 2:58AM ; [facility] Discussed calming techniques such as breathing exercises/meditation and other relaxation techniques Last Documented On 5 3:43PM ; [facility] Counseling for nutrition/yuri ght management provided Last Documented On 5 2:58AM ; [facility] Discussed good sleep hygiene habits Last Documented On 5 2:58AM ; [facility] Assessments Includes: Assessments from this encounter Findings - Attention deficit disorder without hyperactivity - Last Documented On 03/20/2015 3:03AM ; [facility] - Psychotic disorder - Last Documented On 03/20/2015 3:03AM ; [facility] - Bipolar II disorder - Last Documented On 03/20/2015 3:03AM ; [facility] - Depression - Last Documented On 03/20/2015 3:03AM ; [facility] - Persistent insomnia - Last Documented On 03/20/2015 3:03AM ; [facility] - Generalized anxiety disorder - Last Documented On 03/20/2015 3:03AM ; [facility] Instructions Includes: Instructions from this encounter Education and Decision Aids were provided during visit for: Patient education about medi cation --- I educated patient on medication(s) and diagnosis. I reviewed the risks, benefits and side effects of patient's medications Last Documented On 5 2:58AM ; [facility] Discussed calming techniques such as breathing exercises/meditation and other relaxation techniques Last Documented On 5 3:43PM ; [facility] Counseling for nutrition/yuri ght management provided Last Documented On 5 2:58AM ; [facility] Discussed good sleep hygiene habits Last Documented On 5 2:58AM ; [facility] Medical Equipment - Implanted Devices Includes: Current Devices No Medical Equipment Recorded Medications Includes: Medications discussed during this encounter and other current Medications New / Renewed during this visit HITESH TORREZ MD on 03/15/2015 TraZODone HCl 50 MG Tablet Provider: HITESH TORREZ MD 30 day supply: 30 tablet, 0 refills Diagnosis: PERSISTENT INSOMNIA as directed -- half to one t ablet at bedtime as needed for sleep. Pharmacy: [facility] ([facility]) - [id number] , [facility], [phone] - Last Documented On 04/19/2015 4:37PM By Lizeth Torrez MD ; [facility] Current Medications (continue as prescribed) TraZODone HCl 50 MG Tablet 04/19/2015 Provider: Mirella TORREZ MD Diagnosis: PERSISTENT INSOM HAYDEE as directed -- half to one t ablet at bedtime as needed for sleep. Last Documented On 04/19/2015 4:37PM By Lizeth Torrez MD ; [facility] Focalin 10 MG Tablet 04/19/2015 Provider: HITESH TORREZ MD Diagnosis: ATTN DEFIC NONHY PERACT 1 tablet every morning Last Documented On 04/19/2015 4:14PM By Lizeth Torrez MD ; [facility] Methylphenidate HCl 20 MG Tablet 04/19/2015 Provider: HITESH TORREZ MD Diagnosis: ATTN DEFIC NONHY PERACT 1 tablet every morning Last Documented On 04/19/2015 4:25PM By Lizeth Torrez MD ; [facility] Depakote ER 500 MG Tablet, extended-release 24 hour 04/19/2015 Provider: HITESH MATUTE MD Diagnosis: BIPOLAR DISORDER NEC as directed -- 1 tab at nigh t -- may try 1/2 tab at night first before taking 1 at night --given 40 tablets Last Documented On 04/19/2015 4:41PM By Lizeth Torrez MD ; [facility] SEROquel XR 50 MG Tablet, extended-release 24 hour 03/20/2015 Provider: HITESH MATUTE MD Diagnosis: BIPOLAR DISORDER NEC 1 every evening with out food Last Documented On 03/20/2015 2:37AM By Lizeth Torrez MD ; [facility] Focalin 10 MG Tablet 03/20/2015 Provider: HITESH TORREZ MD Diagnosis: ATTN DEFIC NONHY PERACT 1 tablet every morning Last Documented On 03/20/2015 2:37AM By Lizeth Torrez MD ; [facility] One-A-Day Mens Tablet 01/11/2015 Provider: Diagnosis: Last Documented On 5 10:17AM By CRYSTAL BLANCO LPN ; [facility] Lexapro 20 MG Tablet 01/11/2015 Provider: HITESH TORREZ MD Diagnosis: GENERALIZED ANXI ETY DIS as directed --1/2 tab a day for 1 week then 1 tab a day thereafter Last Documented On 01/11/2015 1:48PM By Lizeth Torrez MD ; [facility] Claritin 10 MG Tablet 01/11/2015 Provider: Diagnosis: 1 tablet daily as needed Last Documented On 5 10:17AM By CRYSTAL BLANCO LPN ; [facility] NexIUM 40 MG Capsule, delayed-release 01/11/2015 Pro vider: Diagnosis: 1 daily as needed Last Documented On 5 10:16AM By CRYSTAL BLANCO LPN ; [facility] Medications Administered Includes: Administered Medications from this encounter No Administered Medications Recorded Vital Signs Includes: Vital Signs from this encounter Vital Name 03/15/2015 04:13P Blood Pressure Sitting R 120/80 BP Cuff Size Regular Pulse Rate-Sitting (bpm) 76 Pulse Rhythm Regular Height (in) 69 Weight (lb) 185 Body Mass Index (kg/m2) 27.3 Body Surface Area (m2) 2.0 Last Documented: On 03/15/2015 4:14PM ; [facility] Results Includes: Results discussed during this encounter No Results Recorded For Specified Dates History of Present Illness Includes: History of Present Illness from this encounter ANALISA MANUEL is a 24 year old male. - Past medical history reviewed. Pt said that he tried Lexapro but did not see much difference. His mother thought that his mood got worse. However, his mother thought that the main culprit is this girlfriend that he has and that she is making his mood worse since they argue a lot. He did not even try the Seroquel XR yet. He was afraid of the drowsy side effect. He was reminded to take it in the evening w/o food and told not to drive until he knows the effect of the med in his system. He was told to go ahead and stop the Lexapro if this is making it worse. He admits that he and girlfrienf have been arguing and the GF has been doing that would irritate him but he is trying to make the relationship work since they have kids together. I discussed some coping techniques and encouraged to get counseling for anger mgt. He was asked to at least try the mood stabilizer and if side effects occur, I told him to call me and that I can change it then. After a week of trying the seroquel Xr if no side effects he may try the focalin so he can at least concentrate since he is still having difficulty focusing and he gets side tracked easily and so it is hard for him to accomplish some tasks. He was reminded to refrain from using any illicit drugs. He denied usage of such. MENTAL STATUS EXAM: Sensorium - alert, oriented to name, place, and time Attitude - cooperative Gait - ambulatory Sleep - had difficulty with sleep -- bit better with trazodone Interest/Energy/Motivation - fair Guilt/Worthlessness - absent Concentration/Memory - hard to focus Appetite - good, on 01/11/15 pt weighed 182 lbs and current weight is 185 lbs so he gained 3 lbs Suicidal Thoughts - absent Homicidal Thoughts - absent Delusions - absent Hallucinations - absent Appearance - casually groomed Motor Behavior - calm Eye Contact - intermittent Speech - fluent Mood - hicks, irritable, gets upset easily,depressed Affect - gets upset easily, frequent arguments with GF Thought Process - coherent Social History Description Last Updated Single He lives with his kobi gonzales and their 3 month old son. This is the reason why he stopped using marijuana and illicit drugs because of his son. He was born in [place], [place] and raised in [place], [place]. He is close to both of his parents and they were supportive of him while he was growing up. He denied any history of physical,verbal, or sexual abuse. He has a high school education. 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 He went to community college but he got overwhelmed and so he quit. 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 Legal history he had DWI at age 21 and was charged for Possession of marijuana at least 3 times. He also reported a history of being arrested 4 times with spending a few hours in skilled nursing each time. He has been on probation. Interests and hobbies: sports. Zoroastrianism background: [employer]. Nutritional history: patient eats unhealthy food. He denied abusing laxatives, diuretics, usage of diet pills. No history of binging or purging 01/15/2015 Last Documented On 5 3:43PM ; [facility] Drug use He self medicated w ith [...] October 2014 01/15/2015 Last Documented On 5 3:43PM ; [facility] Alcohol use He self medicate d with alcohol when he was younger. He abused alcohol since age 11 maybe once a week. 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 [employer] 01/11/2015 Last Documented On 5 3:43PM ; [facility] No tobacco use 01/11/2015 Last Documented On 5 3:43PM ; [facility] Procedures and Surgical History Includes: Procedures from this encounter Procedures Code Diagnosis Performing Provider Service L ocation Service Date request consultation by mental health counselor Last Documented On 5 2:58AM ; [facility] I discussed the risks, benef its and side effects of Seroquel XR to the patient including the possibility of metabolic and motor side effects such as tardive dyskinesia Last Documented On 5 3:44PM ; [facility] 1) I explained the rationale for the medication choices and discussed the possible risks, benefits, side effects and alternative treatment options (including no treatment) with the patient. ~ ~2) The patient verbalized understanding and agreed to the treatment plan/medications. ~ ~3) I recommended a healthy balanced diet and exercise as tolerated and approved by their primary care. ~ ~4) I recommended that the patient cut back on caffeine and/or avoid caffeine. ~ ~5) I recommended that the patient avoid nicotine, alcohol, and illicit substances since these can be detrimental to one's health and that these cannot be combined with psychotropic medications. ~ ~6) The patient agreed for safety agreeing to call 911/crisis line or this office (during clinical hours) if suicidal/homicidal ideation or other serious concerns arise. ~ ~7) The patient also agreed to adhere to the treatment plan and raise concerns with it as soon as they come about Last Documented On 5 3:43PM ; [facility] Surgical History Last Updated No history of Prior Surgery: 01/11/2015 Last Documented On 5 3:43PM ; [facility] Medical History Includes: Medical History addressed during this encounter Description Last Updated History of allergic rhinitis 01/12/2015 Last Documented On 5 3:43PM ; [facility] History of GERD 01/11/2015 Last Documented On 5 3:43PM ; [facility] Primary Care Provider: Dr. Balaji Carrillo 01/11/2015 Last Documented On 5 3:43PM ; [facility] Family History Includes: Family History addressed during this encounter Description Last Updated Maternal aunt's history of Alzheimer dis ease -- great aunt 04/19/2015 Last Documented On 5 3:43PM ; [facility] Maternal uncle's history of depression - - uncle 04/19/2015 Last Documented On 5 3:43PM ; [facility] Maternal aunt's history of alcoholism -- aunt 01/13/2015 Last Documented On 5 3:43PM ; [facility] Maternal aunt's history of cocaine abuse -- aunt 01/13/2015 Last Documented On 5 3:43PM ; [facility] Maternal uncle's history of alcoholism - - uncle 01/13/2015 Last Documented On 5 3:43PM ; [facility] Maternal history of depression -- mother 01/13/2015 Last Documented On 5 3:43PM ; [facility] Maternal uncle's history of due to suicide -- uncle hung himself 01/11/2015 Last Documented On 5 3:43PM ; [facility] Review of Systems Includes: Review of Systems from this encounter Systemic: No fever and no chills. Night sweats he has always had night sweats. Head: No headache and no sinus pain. Otolaryngeal: No nasal discharge, no hoarseness, and no sore throat. Cardiovascular: No palpitations and the heart rate was not fast. Pulmonary: No dyspnea and no cough. Gastrointestinal: No heartburn. Nausea occasional. Musculoskeletal: Muscle aches. Neurological: Dizziness occasional. Skin: No pruritus and no rash. Mental Status Includes: Mental Status from this encounter Description Depression Functional Status Includes: Functional Status from this encounter No Functional Status Recorded Physical Exam Includes: Physical Exam from this encounter Allergies Includes: Active Allergies No Known Allergies Encounters Encounter Provider Location Date Check-In Time Check-Out Time Diagnosis GENERAL OFFICE VISIT HITESH [facility] 03/15/20 15 3:36PM 4:58PM Persistent Insomnia,Gener alized Anxiety Disorder,Atten tion Deficit Disorder Without Hyperactivity, Psychotic Disorder,Depre ssion,Bipolar II Disorder Clinical Notes Includes: Clinical Notes from this encounter No Clinical Notes Recorded
--- OUTSIDE RECORDS SUMMARY | 2024-11-22 11:31 | XMS_ITS | Clinical Summary ---
Author Organization [facility] Physician [facility] Building [address] [place] [id number] Care Team Providers Care Customer Sales Consultant Name Role Phone Dm Isabel MD Unavailable [phone] Henny Abreu DO Primary Care Provider [phone] Allergies No known active allergies Medications multivit,calc,m ss-VE-W3-lycop (One-A-Day Men's Complete) 240 mcg-30 mcg- 300 mcg tablet daily 01/11/2015 Acti ve buPROPion XL (WELLBUTRIN XL) 150 mg 24 hr tablet Take 1 tablet (150 mg total) by mouth daily 30 tablet 1 03/19/2024 Active lisinopriL (PRINIVIL,ZESTR IL) 10 mg tablet Take 1 tablet (10 mg total) by mouth daily 30 tablet 1 03/19/2024 Active thiamine (VITAMIN B1) 100 mg tabletIndicatio ns:Thiamine Deficiency Take 1 tablet (100 mg total) by mouth daily for 2 doses 2 tablet 03/19/2024 Active acetaminophen (TYLENOL) 325 mg tablet Take 2 tablets (650 mg total) by mouth 3 (three) times a day as needed for fever or pain 30 tablet 03/18/2024 Active oxyCODONE (ROXICODONE) 5 mg immediate release tabletIndicatio ns:Pain Take 1 tablet (5 mg total) by mouth every 4 (four) hours as needed for pain 5 tablet 06/13/2024 Active Active Problems Problem Noted Date Diagnosed Date Alcohol use disorder, severe 03/18/2024 Cocaine use disorder, severe 03/18/2024 Depressive disorder 03/18/2024 Alcohol withdrawal syndrome with complication Assessment & Plan (03/18/2024 3:46 PM CDT): Plan as listed in polysubstance overuse -Toxicology doesn't feel that he's having severe withdrawal. -Start thiamine and folic acid with MVI -Started on naltrexone IM, to get follow up doses at [facility]. Cocaine abuse 03/16/2024 Assessment & Plan (03/16/2024 2:25 PM CDT): Avoid B blockers Plan as listed under polysubstance overdose Polysubstance overdose 03/16/2024 Assessment & Plan (03/18/2024 5:22 PM CDT): Patient with alcohol and cocaine with ecstasy use -Started on telemetry -Valium 22.5 mg given in the ED on admission -Started on CIWA scale and ativan and librium for alcohol withdrawal -Labetalol IV prn for HTN in setting of cocaine abuse -EKG repeated for abn reading with T wave inversion on arrival, no troponin leak noted on lab and patient denies chest pain -On LR IVF 125 cc/hr for hydration -CBT resources provided to patient by toxicology team -Toxicology consult recommendations appreciated- improved. They doubt he has significant alcohol withdrawal at this point. Head trauma 03/16/2024 Assessment & Plan (03/16/2024 2:28 PM CDT): A&O x 3 on admission -Imaging shows no acute intracranial process. Posterior scalp contusion is noted and no evidence of acute fracture in the cervical spine. HTN (hypertension) 03/16/2024 Assessment & Plan (03/18/2024 5:24 PM CDT): Hx of medication non adherence noted BP still somewhat elevated but better and also unclear what his baseline is on the lisinopril. Cont lisinopril. Knows he needs to follow up with PCP for bp check and labs and potential adjustment to his bp regimen. Avoid NSAIDS, alcohol and cocaine which can all elevate his blood pressure. Closed fracture of left distal tibia 01/09/2022 Overview (01/09/2022): Added automatically from request for surgery [id number] Displaced pilon fracture of right tibia, init fo r clos fx 12/21/2021 Depression 05/03/2019 Assessment & Plan (03/18/2024 3:46 PM CDT): Mood stable at this time Consult psychiatry given passive SI. Prescribing wellbutrin Encounters Date Type Department Care Team Description 10/14/2024 3:45 PM PROCESSOR HELPER Office Visit [facility] Surgery [address] [place] [address] [address] [place] [address] Emmy Hernandez NP Amputation of tip of finger, initial encounter (Primary Dx) 2024 2:00 PM PROCESSOR HELPER Procedure visit [facility] Surgery [address] [place] [address] [address] [place] [address] Emmy Hernandez NP Amputation of tip of finger, initial encounter from Last 3 Months Immunizations Name Administration Dates Next Due Influenza, Quadrivalent, Rec ombinant, Egg Free, Preservative Free, Intramuscular 06/17/2019 Tdap 06/12/2024 Surgical History Surgery Date Site/Laterality Comments ANKLE FRACTURE SURGERY 12/22/2021 Right COLONOSCOPY 09/12/2021 - 10/12/2021 Family History Medical History Relation Name Comments No Known Problems Father No Known Problems Mother Anesthesia problems Neg Hx Relation Name Status Comments Father Mother Social History Tobacco Use Types Packs/Day Years Used Date Smoking Tobacco: Every Day Cigarettes Smokeless Tobacco: Never Social Connection and Isolat ion Panel [NHANES] Answer Date Recorded In a typical week, how many times do you talk on the phone with family, friends, or neighbors? More than three times a week 03/17/2024 How often do you get togethe r with friends or relatives? More than three times a week 03/17/2024 How often do you attend chur or yazidi services? Never 03/17/2024 Do you belong to any clubs o r organizations such as jewish groups, unions, fraternal or athletic groups, or school groups? No 03/17/2024 How often do you attend meet ings of the clubs or organizations you belong to? Never 03/17/2024 Are you , , di vorced, , never , or living with a partner? Never 03/17/2024 AUDIT-C Answer Date Recorded Q1: How often do you have a drink containing alc ohol? Monthly or less 01/10/2022 Q2: How many drinks containi ng alcohol do you have on a typical day when you are drinking? 1 or 2 01/10/2022 Q3: How often do you have si x or more drinks on one occasion? Never 01/10/2022 Overall Financial Resource Strain (CARDIA) Answe r Date Recorded How hard is it for you to pa y for the very basics like food, housing, medical care, and heating? Not very hard 03/17/2024 PHQ-2 Answer Date Recorded PHQ-2 Total Score 1 03/17/2024 Hunger Vital Sign Answer Date Recorded Within the past 12 months, y ou worried that your food would run out before you got the money to buy more. Never true 03/17/20 24 Within the past 12 months, t he food you bought just didn't last and you didn't have money to get more. Never true 03/17/2024 PRAPARE - Transportation Answer Date Re corded In the past 12 months, has l ack of transportation kept you from medical appointments or from getting medications? No 02/2024 In the past 12 months, has l ack of transportation kept you from meetings, work, or from getting things needed for daily living? No 03/17/2024 Housing Stability Vital Sign Answer Umair e Recorded In the last 12 months, was t here a time when you were not able to pay the mortgage or rent on time? No 12/21/2021 Number of Places Lived in the Last Year Not on f ile 12/21/2021 In the last 12 months, was t here a time when you did not have a steady place to sleep or slept in a custodial (including now)? No 12/21/2021 Housing Stability Vital Sign Answer Umair e Recorded In the last 12 months, was t here a time when you were not able to pay the mortgage or rent on time? No 03/17/2024 In the past 12 months, how m any times have you moved where you were living? 0 03/17/2024 At any time in the past 12 m [place], were you homeless or living in a custodial (including now)? No 03/17/2024 Personal Safety Answer Date Recorded Have you ever been in or are you currently in a harmful physical or emotional relationship or is someone making you feel afraid or unsafe? Denies 06/12/2024 Sex and Gender Information Value Date Recorded Sex Assigned at Not on file Legal Sex Male 4:31 AM PROCESSOR HELPER Gender Identity Not on file Sexual Orientation Not on file Obstetrics History Last Filed Vital Signs Vital Sign Reading Time Taken Comments Blood Pressure 118/77 06/13/2024 12:00 AM CDT Pulse 69 06/13/2024 12:00 AM CDT Temperature 36.7 C (98.1 F) 06/12/2024 5:20 PM CDT Respiratory Rate 14 06/12/2024 6:47 PM CDT Oxygen Saturation 99% 06/13/2024 12:00 AM CDT Inhaled Oxygen Concentration - - Weight 95.3 kg (210 lb) 06/12/2024 5:20 PM CDT Height 175.3 cm (5' 9 ) 06/12/2024 5:20 PM CDT Body Mass Index 31.01 06/12/2024 5:20 PM CDT Plan of Treatment Health Maintenance Due Date Last Done Comments Pneumococcal vaccine <65 (1 of 2 - PCV) 1995 Varicella Vaccines (1 of 2 - 13+ 2-dose series) 2002 Regular Well Visit/Exam 18-64 2007 Influenza Vaccine (#1) 2024 3, 06/17/2019 Depression Screening 03/15/2025 03/15/2024 DTaP/Tdap/Td Vaccine (2 - Td or Tdap) 06/12/2034 06/12/2024 Hepatitis B Screening Completed 03/17/2024 Hepatitis C Screening Completed 03/17/2024 HPV Vaccines Aged Out No longer eligi ble based on patient's age to complete this topic Medical Devices Implanted Type Area Engineering Research Manager Device Identifier Shelf Expiration Date Model / Serial / Lot [employer] [id number] Saleem 1.6mm 6in Thread Wire Fixation - [id number] Implanted:Qty: 1 on 12/22/2021 by Dm Isabel MD at [facility] Right: Ankle [employer] [id number] / / [employer]tho [id number] Evos 4.7mm 40mm Full Thread Screw Bone Sterile Osteopenia - [id number] Implanted:Qty: 1 on 01/14/2022 by Charles Pena MD at [facility] Right: Tibia [employer] [id number] / / [employer] [id number] 2.7mm 4.3mm 42mm Lock Self Retain Flat Head Long Bone Small Bone - [id number] Implanted:Qty: 1 on 01/14/2022 by Charles Pena MD at [facility] Right: Tibia [employer] [id number] / / [employer] [id number] 2.7mm 4.3mm 40mm Lock Self Retain Flat Head Long Bone Small Bone - [id number] Implanted:Qty: 1 on 01/14/2022 by Charles Pena MD at [facility] Right: Tibia [employer] [id number] / / [employer] [id number] Evos 3.5mm 46mm Self Tap Lock Screw Bone Sterile - [id number] Implanted:Qty: 1 on 01/14/2022 by Charles Pena MD at [facility] Right: Tibia [employer] [id number] / / [employer] [id number] Evos 153x12.7x3.5mm 35x1.8mm 11 Hole Low Profile Variable Angle - [id number] Implanted:Qty: 1 on 01/14/2022 by Charles Pena MD at [facility] Right: Tibia [employer] [id number] / / [employer] [id number] Freeze Dried Chips 1-10mm Graft 15ml Bone Cancellous - [id number] Implanted:Qty: 1 on 01/14/2022 by Charles Pena MD at [facility] Right: Tibia [employer] 07/21/2026 [id number] / / [id number] [employer] [id number] Evos Mini 2.7mm 4.5mm 40mm Self Tap Sales And Support Center Agent Long Bone Small Bone - [id number] Implanted:Qty: 1 on 01/14/2022 by Charles Pena MD at [facility] Right: Tibia [employer] [id number] / / [employer] [id number] Evos Mini 2.7mm 4.5mm 38mm Self Tap Cortex T8 Screw Bone Sterile - [id number] Implanted:Qty: 1 on 01/14/2022 by Charles Pena MD at [facility] Right: Tibia [employer] [id number] / / [employer] [id number] 2.7mm 4.5mm 42mm Self Retaining Screwdriver Self Tap Flat Head - [id number] Implanted:Qty: 2 on 01/14/2022 by Charles Pena MD at [facility] Right: Tibia [employer] [id number] / / [employer] [id number] Evos 3.5mm 65mm Self Tap Cortex Screw Bone Sterile - [id number] Implanted:Qty: 2 on 01/14/2022 by Charles Pnea MD at [facility] Right: Tibia [employer] [id number] / / [employer] [id number] Evos 3.5mm 24mm Self Tap Cortex Screw Bone Sterile - [id number] Implanted:Qty: 2 on 01/14/2022 by Charles Pena MD at [facility] Right: Tibia [employer] [id number] / / [employer] [id number] Evos 3.5mm 28mm Self Tap Cortex Screw Bone Sterile - [id number] Implanted:Qty: 1 on 01/14/2022 by Charles Pena MD at [facility] Right: Tibia [employer] [id number] / / Explanted Type Area Engineering Research Manager Device Identifier Shelf Expiration Date Model / Serial / Lot [employer] [id number] Saleem .062in 9in Trocar Point One End Orthopedic Wire - [id number] Explanted:Qty: 1 on 01/14/2022 by Charles Pena MD at [facility] Right: Tibia [employer] [id number] S / / Procedures Procedure Name Priority Date/Time Associated Diagnosis Comments HEPATITIS C ANTIBODY Routine 03/17/2024 10:45 PM CDT from Last 3 Months or Most Recently Relevant to Health Maintenance Results * Hepatitis C antibody Blood (03/17/2024 10:45 PM CDT) Hep C Ab Nonreactive Nonreactive Comment:Antibodies to HCV no t detected. Does NOT exclude the possibility of recent exposure to HCV. Current interpretive data was last revised on 22 Blood 03/17/2024 10:4 5 PM CDT 03/17/2024 11:13 PM CDT Joseph Martell MD LAB MICROBIOLOGY - GENE [facility] ORDERABLES Final Result [facility] [place] [address] from Last 3 Months or Most Recently Relevant to Health Maintenance Insurance [employer] [facility] [employer] [employer] [facility] [employer] [employer]ENSATION GENERIC Advance Directives For more information, please contact: [phone] * Full Code (Latest Code Status on File) Date Activated Date Inactivated Comments 03/16/2024 7:30 AM 03/18/2024 9:43 PM * Full Code Date Activated Date Inactivated Comments 12/21/2021 8:44 AM 12/24/2021 5:47 PM Care Teams Customer Sales Consultant Relationship Specialty [place] [address] [address] PCP - General Family Medicine 01/09/22 [place] [id number] [address] Surgeon Orthopedic Surgery 12/24/21
--- OUTSIDE RECORDS SUMMARY | 2024-11-22 11:31 | XMS_ITS | Clinical Summary ---
Author Organization [facility] Address [address] [place] [address] Phone Care Team Providers Care Roll Up Machine Operator Name Role Phone Unavailable Unavailable Unavailable Reason for Referral Date Encounter Description Provider Reason for Referral 04/19/15 GENERAL OFFICE VISIT HITESH TORREZ MD Request Consultation By Mental Health Counselor - -- continue seeing Sidney Lopez Reason for Visit and Chief Complaint The Chief Complaint is: Bipolar and Anger issues Problems Includes: Problems addressed during this encounter and other active Problems Current Visit Onset Date Resolved Date Provider Conditio n Status Attention Deficit Disorder Without Hyperactivity 01/11/2015 HITESH TORREZ MD Active Last Documented On 5 10:31AM ; [facility] Bipolar II Disorder 01/11/2015 HITESH JAY MD Active Last Documented On 5 9:55AM ; [facility] Generalized Anxiety Disorder 01/11/2015 HITESH TORREZ MD Active Last Documented On 5 10:14AM ; [facility] Persistent Insomnia 01/11/2015 HITESH JAY MD Active Last Documented On 5 9:55AM ; [facility] Psychotic Disorder 01/11/2015 HITESH OLIVIA MD Active Last Documented On 5 10:32AM ; [facility] Depression 07/13/2014 HITESH TORREZ MD Ac tive Last Documented On 5 10:20AM ; [facility] Past Visits Onset Date Resolved Date Provider Condition Status Esophageal Reflux 01/11/2015 HITESH Sahu MD Active Last Documented On 5 10:15AM ; [facility] Plan of Treatment Education and Decision Aids were provided during visit for: Patient education about medi cation --- I educated patient on medication(s) and diagnosis. I reviewed the risks, benefits and side effects of patient's medications. --trazodone, depakote er including the boxed warning on liver that is why the need for periodic lab monitoring Last Documented On 5 9:48AM ; [facility] Discussed calming techniques such as breathing exercises/meditation and other relaxation techniques Last Documented On 5 3:53PM ; [facility] Counseling for nutrition/yuri ght management provided Last Documented On 5 9:48AM ; [facility] Assessments Includes: Assessments from this encounter Findings - Attention deficit disorder without hyperactivity - Last Documented On 04/23/2015 9:54AM ; [facility] - Psychotic disorder - Last Documented On 04/23/2015 9:54AM ; [facility] - Bipolar II disorder - Last Documented On 04/23/2015 9:54AM ; [facility] - Depression - Last Documented On 04/23/2015 9:54AM ; [facility] - Persistent insomnia - Last Documented On 04/23/2015 9:54AM ; [facility] - Generalized anxiety disorder - Last Documented On 04/23/2015 9:54AM ; [facility] Instructions Includes: Instructions from this encounter Education and Decision Aids were provided during visit for: Patient education about [facility] --- I educated patient on medication(s) and diagnosis. I reviewed the risks, benefits and side effects of patient's medications. --trazodone, depakote er including the boxed warning on liver that is why the need for periodic lab monitoring Last Documented On 5 9:48AM ; [facility] Discussed calming techniques such as breathing exercises/meditation and other relaxation techniques Last Documented On 5 3:53PM ; [facility] Counseling for nutrition/yuri ght management provided Last Documented On 5 9:48AM ; [facility] Medical Equipment - Implanted Devices Includes: Current Devices No Medical Equipment Recorded Medications Includes: Medications discussed during this encounter and other current Medications New / Renewed during this visit HITESH TORREZ MD on 04/19/2015 TraZODone HCl 50 MG Tablet Provider: HITESH TORREZ MD 30 day supply: 30 tablet, 2 refills Diagnosis: PERSISTENT INSOMNIA as directed -- half to one t ablet at bedtime as needed for sleep. Pharmacy: [facility]) - [id number], [id number] - Last Documented On 04/19/2015 4:37PM By Lizeth Torrez MD ; [facility] Focalin 10 MG Tablet Provider: HITESH TORREZ MD 30 day supply: 30 tablet, 0 refills Diagnosis: ATTN DEFIC NONHYPERACT 1 tablet every morning Pharmacy: [facility]) - [address] [facility], [phone] - Last Documented On 04/19/2015 4:14PM By Lizeth Torrez MD ; [facility] Methylphenidate HCl 20 MG Tablet Provider: HITESH TORREZ MD 30 day supply: 30 tablet, 0 refills Diagnosis: ATTN DEFIC NONHYPERACT 1 tablet every morning Pharmacy: [facility]) - [address] , [facility], [id number] - Last Documented On 04/19/2015 4:25PM By Lizeth Torrez MD ; [facility] Depakote ER 500 MG Tablet, extended-release 24 hour Provider: HITESH MATUTE MD 30 day supply: 30 tablet, 0 refills Diagnosis: BIPOLAR DISORDER NEC as directed -- 1 tab at nigh t -- may try 1/2 tab at night first before taking 1 at night --given 40 tablets Pharmacy: [facility]) - [id number] , [facility], [phone] - Last Documented On 04/19/2015 4:41PM By Lizeth Torrez MD ; [facility] Current Medications (continue as prescribed) SEROquel XR 50 MG Tablet, extended-release 24 hour 03/20/2015 Provider: HITESH MATUTE MD Diagnosis: BIPOLAR DISORDER NEC 1 every evening with out food Last Documented On 03/20/2015 2:37AM By Lizeth Torrez MD ; [facility] Focalin 10 MG Tablet 03/20/2015 Provider: HITESH TORREZ MD Diagnosis: ATTN DEFIC NONHY PERACT 1 tablet every morning Last Documented On 03/20/2015 2:37AM By Lizeth Torrez MD ; [facility] One-A-Day Mens Tablet 01/11/2015 Provider: Diagnosis: Last Documented On 5 10:17AM By CRYSTAL BLANCO LPN ; [facility] Lexapro 20 MG Tablet 01/11/2015 Provider: HITESH TORREZ MD Diagnosis: GENERALIZED ANXI ETY DIS as directed --1/2 tab a day for 1 week then 1 tab a day thereafter Last Documented On 01/11/2015 1:48PM By Lizeth Torrez MD ; [facility] Claritin 10 MG Tablet 01/11/2015 Provider: Diagnosis: 1 tablet daily as needed Last Documented On 5 10:17AM By CRYSTAL BLANCO LPN ; [facility] NexIUM 40 MG Capsule, delayed-release 01/11/2015 Pro vider: Diagnosis: 1 daily as needed Last Documented On 5 10:16AM By CRYSTAL BLANCO LPN ; [facility] Medications Administered Includes: Administered Medications from this encounter No Administered Medications Recorded Vital Signs Includes: Vital Signs from this encounter Vital Name 04/19/2015 04:04P Blood Pressure Sitting R 110/76 BP Cuff Size Large Pulse Rate-Sitting (bpm) 76 Pulse Rhythm Regular Height (in) 69 Weight (lb) 184 Body Mass Index (kg/m2) 27.2 Body Surface Area (m2) 2.0 Last Documented: On 04/19/2015 4:05PM ; [facility] Results Includes: Results discussed during this encounter No Results Recorded For Specified Dates History of Present Illness Includes: History of Present Illness from this encounter ANALISA MANUEL is a 24 year old male. - Past medical history reviewed. Patient said that he tried seroquel XRat a low dose of 50 mg in the evening and he said that he slept very well but he still has some hangover sedation the next morning so he stopped taking it. Initially he also said that he tried Focalin initially and told me that it also made him drowsy but then I told him that Focalin/Methyphenidate or any ADD meds in general usually do not cause drowsiness. It actually is an activating medication which normally causes insomnia instead of drowsiness. He was educated again on the use of Focalin or generic methylphenidate. He then later changed his story and told me that he lied about taking the Focalin or methylphenidate and he has not really started it. Patient was encouraged to be truthful with what he is telling me and was asked to be compliant with his treatment recommendations. He is now willing to try the Focalin or methylphenidate since he needs to focus and concentrate. He still has difficulty processing information. He has difficulty paying attention.He gets easily side tracked. he tends to procrastinate. He has problems initiating tasks. He has problems with organization. He thinks he still has the focalin script but in case he cannot find it, he will be given generic methyphenidate 20 mg in am and was told to try this first then after a week may try the depakote ER. I initially asked him to cut back seroquel XR to 1/2 tab since he said it was helping with sleep but he said he just did not want to take seroquel XR anymore. He still can get very hicks, angry and irritable. He said that if someone makes him mad that it is natural for him to get mad or upset and is wondering if he still needs to take a mood stabilizer. I reminded him that it is entirely up to him as far as taking meds. I reminded him that he came to me with issues with depression, mood swings and anger and that his mother thought that he has mood issues as well and that part of his stress is his GF and he has a kid to take care of which adds to his stress. He was given an option on trying another mood stabilizer. He will be tried on Depakote ER 500 mg half or 1 at bedtime for his mood swings. He was reminded that he seemed to be sensitive to psych meds and that he responds by having sedation so it presents a challenge in picking meds for him. He was given 2 boxes samples to try to help him out. He was told that it can cause sedation or drowsiness but to be taken at night but it is to help with his mood swings being a mood stabilizer and that if he tolerated this that I would need to get periodic labs --depakote level, liver function test, cbc.... however if he gets drowsy he can cut it to 250 mg at least temporarily until he can get used to the medication. Pt was told to call me should there be any adverse events. Pt voiced understanding. He still wants to continue Trazodone as needed for sleep. I reminded him some of the coping techniques to help manage his anger or mood swings i.e. deep breathing techniques, meditation and other stress relaxation methods. He said that he has seen Sidney Lopez-- counselor and seemed to be helpful. MENTAL STATUS EXAM: Sensorium - alert, oriented to name, place, and time Attitude - cooperative Gait - ambulatory Sleep -interrupted sleep but better when he takes his meds. Interest/Energy/Motivation - not so motivated Guilt/Worthlessness - absent Concentration/Memory - struggles to pay attention, problems with concentration/focusing Appetite - good, on 03/15/15 pt weighed 185 lbs and current weight is 184 lbs so he lost 1 lb Suicidal Thoughts - absent Homicidal Thoughts - absent Delusions - absent Hallucinations - absent Appearance - casually groomed Motor Behavior - calm Eye Contact - intermittent Speech - fluent Mood - gets hicks, upset, angry easily Affect - limited Thought Process - coherent Social History Description Last Updated Single He lives with his kobi gonzales and their 3 month old son. This is the reason why he stopped using marijuana and illicit drugs because of his son. He was born in [place], [place] and raised in [place], [place]. He is close to both of his parents and they were supportive of him while he was growing up. He denied any history of physical,verbal, or sexual abuse. He has a high school education. 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 He went to community college but he got overwhelmed and so he quit. 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 Legal history he had DWI at age 21 and was charged for Possession of marijuana at least 3 times. He also reported a history of being arrested 4 times with spending a few hours in [facility] each time. He has been on probation. Interests and hobbies: sports. Hindu background: Mosque. Nutritional history: patient eats unhealthy food. He denied abusing laxatives, diuretics, usage of diet pills. No history of binging or purging 01/15/2015 Last Documented On 5 3:53PM ; [facility] Drug use He self medicated [...] October 2014 01/15/2015 Last Documented On 5 3:53PM ; [facility] Alcohol use He self medicate d with alcohol when he was younger. He abused alcohol since age 11 maybe once a week. 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 [employer] 01/11/2015 Last Documented On 5 3:53PM ; [facility] Procedures and Surgical History Includes: Procedures from this encounter Procedures Code Diagnosis Performing Provider Service L ocation Service Date request consultation by mental health counselor -- continue seeing Sidney Lopez Last Documented On 5 9:48AM ; [facility] I discussed the risks, benef its and side effects of Seroquel XR to the patient including the possibility of metabolic and motor side effects such as tardive dyskinesia Last Documented On 5 3:56PM ; [facility] 1) I explained the rationale [...] they come about Last Documented On 5 3:53PM ; [facility] handouts given /educational brochures given with regards to medication. Patient was given samples --40 tabs and package insert for Depakote ER to act as a guide for treatment Last Documented On 5 9:48AM ; [facility] Counseling on new medication : I discussed the risks, benefits and side effects of Methyphenidate and Depakote ER . Patient verbalized understanding and agreed to treatment Last Documented On 5 9:48AM ; [facility] Clinical summary provided to patient Last Documented On 5 9:48AM ; [facility] Surgical History Last Updated No history of Prior Surgery: 01/11/2015 Last Documented On 5 3:53PM ; [facility] Medical History Includes: Medical History addressed during this encounter Description Last Updated History of allergic rhinitis 01/12/2015 Last Documented On 5 3:53PM ; [facility] History of GERD 01/11/2015 Last Documented On 5 3:53PM ; [facility] Primary Care Provider: Dr. Balaji Carrillo 01/11/2015 Last Documented On 5 3:53PM ; [facility] Family History Includes: Family History addressed during this encounter Description Last Updated Maternal aunt's history of A lzheimer disease ,cocaine abuse and alcoholism-- great aunt 04/19/2015 Last Documented On 5 9:54AM ; [facility] Maternal uncle's history of depression , alcoholism and suicide-- uncle 04/19/2015 Last Documented On 5 9:54AM ; [facility] Maternal history of depression -- mother 01/13/2015 Last Documented On 5 3:53PM ; [facility] Review of Systems Includes: Review of Systems from this encounter Systemic: No fever, no chills, and no recent weight change. No night sweats. Head: No headache. Otolaryngeal: No nasal discharge, no hoarseness, and no sore throat. Cardiovascular: Chest pain or discomfort he reported a little bit of occasional chest discomfort. No palpitations and the heart rate was not fast. Pulmonary: No dyspnea and no cough. Gastrointestinal: No heartburn. Nausea occasional and vomiting occasional. No abdominal pain and no diarrhea. Musculoskeletal: No muscle aches. Neurological: No dizziness. Skin: No rash. Mental Status Includes: Mental Status from this encounter Description Depression Functional Status Includes: Functional Status from this encounter No Functional Status Recorded Physical Exam Includes: Physical Exam from this encounter Allergies Includes: Active Allergies No Known Allergies Encounters Encounter Provider Location Date Check-In Time Check-Out Time Diagnosis GENERAL OFFICE VISIT HITESH BLACKMONN-PSYCHI [facility] 04/19/20 15 3:52PM 5:00PM Persistent Insomnia,Gener alized Anxiety Disorder,Atten tion Deficit Disorder Without Hyperactivity, Psychotic Disorder,Depre ssion,Bipolar II Disorder Clinical Notes Includes: Clinical Notes from this encounter No Clinical Notes Recorded
--- OUTSIDE RECORDS SUMMARY | 2024-11-22 11:31 | XMS_ITS | Clinical Summary ---
Author Organization [facility] Address [address] [place] [address] Phone Care Team Providers Care Funeral Director'S Assistant Name Role Phone Unavailable Unavailable Unavailable Reason for Visit and Chief Complaint * PHONE CALL Problems Includes: Problems addressed during this encounter and other active Problems Current Visit Onset Date Resolved Date Provider Conditio n Status Bipolar II Disorder 01/11/2015 HITESH JAY MD Active Last Documented On 5 9:55AM ; [facility] Past Visits Onset Date Resolved Date Provider Condition Status Attention Deficit Disorder Without Hyperactivity 01/11/2015 HITESH TORREZ MD Active Last Documented On 5 10:31AM ; [facility] Esophageal Reflux 01/11/2015 HITESH Sahu MD Active Last Documented On 5 10:15AM ; [facility] Generalized Anxiety Disorder [...] On 5 10:20AM ; [facility] Plan of Treatment No Plan of Treatment Recorded Assessments Includes: Assessments from this encounter Findings - Bipolar II disorder - Last Documented On 02/21/2015 7:46PM ; [facility] Medical Equipment - Implanted Devices Includes: Current Devices No Medical Equipment Recorded Medications Includes: Medications discussed during this encounter and other current Medications New / Renewed during this visit HITESH TORREZ MD on 02/21/2015 SEROquel XR 50 MG Tablet, extended-release 24 hour Provider: HITESH MATUTE MD 30 day supply: 30 tablet, 0 refills Diagnosis: BIPOLAR DISORDER NEC 1 every evening with out mark d --per pharmacist $25 copay Pharmacy: [facility] ([facility]) - [id number] , [facility], [id number] - Last Documented On 03/20/2015 2:37AM By Lizeth Torrez MD ; [facility] Current Medications (continue as prescribed) TraZODone HCl 50 MG Tablet 04/19/2015 Provider: Mirella TORREZ MD Diagnosis: PERSISTENT INSOM HAYDEE as directed -- half to one t ablet at bedtime as needed for sleep. Last Documented On 04/19/2015 4:37PM By Lizeth Torrez MD ; [facility] Focalin 10 MG Tablet 04/19/2015 [...] Lizeth Torrez MD ; [facility] SEROquel XR 50 MG Tablet, [...] from this encounter No Administered Medications Recorded Results Includes: Results discussed during this encounter [...] Location Date Check-In Time Check-Out Time Diagnosis * PHONE CALL HITESH TORREZ MD [facility] 02/22/20 15 1:57PM 11:59PM Bipolar II Disorder Clinical Notes Includes: Clinical Notes from this encounter No Clinical Notes Recorded
--- OUTSIDE RECORDS SUMMARY | 2024-11-22 11:31 | XMS_ITS ---
Author Organization [facility] Address [address] [place] [address] Phone Care Team Providers Care Winch Derrick Operator Name Role Phone Unavailable Unavailable Unavailable Problems Includes: Active, inactive, and resolved Problems All Visits Onset Date Resolved Date Provider Condition S tatus Attention Deficit Disorder W ithout Hyperactivity 01/11/2015 Active Last Documented On 3 5:48PM ; [facility] Bipolar II Disorder 01/11/2015 Activ e Last Documented On 3 5:48PM ; [facility] Esophageal Reflux 01/11/2015 Active Last Documented On 3 5:48PM ; [facility] Generalized Anxiety Disorder 01/11/2015 Active Last Documented On 3 5:48PM ; [facility] Persistent Insomnia 01/11/2015 Activ e Last Documented On 3 5:48PM ; [facility] Psychotic Disorder 01/11/2015 Active Last Documented On 3 5:48PM ; [facility] Depression 07/13/2014 Active Last Documented On 3 5:48PM ; [facility] Plan of Treatment No Plan of Treatment Recorded Assessments Includes: Assessments for all patient encounters No Assessments Recorded Medical Equipment - Implanted Devices Includes: Current and historical Devices No Medical Equipment Recorded Medications Includes: Current and historical Medications Current Medications (continue as prescribed) Focalin 10 MG OR TABS 04/19/2015 Provider: BARRERA TORREZ MD Diagnosis: ATTN DEFIC NONHY PERACT 1 tablet every morning Last Documented On 02/08/2023 5:37PM By Lizeth Torrez MD ; [facility] Methylphenidate HCl 20 MG OR TABS 04/19/2015 Provider: HITESH TORREZ MD Diagnosis: ATTN DEFIC NONHY PERACT 1 tablet every morning Last Documented On 02/08/2023 5:37PM By Lizeth Torrez MD ; [facility] Depakote ER 500 MG OR TB24 04/19/2015 Provider: Mirella TORREZ MD Diagnosis: BIPOLAR DISORDER NEC as directed -- 1 tab at nigh t -- may try 1/2 tab at night first before taking 1 at night --given 40 tablets Last Documented On 02/08/2023 5:37PM By Lizeth Torrez MD ; [facility] traZODone HCl 50 MG OR TABS 04/19/2015 Provider: HITESH TORREZ MD Diagnosis: PERSISTENT INSOM HAYDEE as directed -- half to one t ablet at bedtime as needed for sleep. Last Documented On 02/08/2023 5:37PM By Lizeth Torrez MD ; [facility] Focalin 10 MG OR TABS 03/20/2015 Provider: BARRERA TORREZ MD Diagnosis: ATTN DEFIC NONHY PERACT 1 tablet every morning Last Documented On 02/08/2023 5:37PM By Lizeth Torrez MD ; [facility] SEROquel XR 50 MG OR TB24 03/20/2015 Provider: ME OSMAN TORREZ MD Diagnosis: BIPOLAR DISORDER NEC 1 every evening with out food Last Documented On 02/08/2023 5:37PM By Lizeth Torrez MD ; [facility] NexIUM 40 MG OR CPDR 01/11/2015 Provider: Diagnosis: 1 daily as needed Last Documented On 02/08/2023 5:37PM By CRYSTAL BLANCO LPN ; [facility] Claritin 10 MG OR TABS 01/11/2015 Provider: Diagnosis: 1 tablet daily as needed Last Documented On 02/08/2023 5:37PM By CRYSTAL BLANCO LPN ; [facility] One-A-Day Mens OR TABS 01/11/2015 Provider: Diagnosis: Last Documented On 02/08/2023 5:37PM By CRYSTAL BLANCO LPN ; [facility] Lexapro 20 MG OR TABS 01/11/2015 Provider: BARRERA TORREZ MD Diagnosis: GENERALIZED ANXI ETY DIS as directed --1/2 tab a day for 1 week then 1 tab a day thereafter Last Documented On 02/08/2023 5:37PM By Lizeth Torrez MD ; [facility] Past Medications on file traZODone HCl 50 MG OR TABS 03/15/2015 - 04/19/2015 Provider: HITESH JAY MD Diagnosis: PERSISTENT INSOM HAYDEE as directed -- half to one t ablet at bedtime as needed for sleep. Last Documented On 02/08/2023 5:37PM By Lizeth Torrez MD ; [facility] SEROquel XR 50 MG OR TB24 02/21/2015 - 03/15/2015 Provider: HITESH TORREZ MD Diagnosis: BIPOLAR DISORDER NEC 1 every evening with out mark d --per pharmacist $25 copay Last Documented On 02/08/2023 5:37PM By Lizeth Torrez MD ; [facility] traZODone HCl 50 MG OR TABS 01/11/2015 - 03/15/2015 Provider: HITESH JAY MD Diagnosis: PERSISTENT INSOM HAYDEE as directed -- half to one t ablet at bedtime as needed for sleep. Last Documented On 02/08/2023 5:37PM By Lizeth Torrez MD ; [facility] Focalin 10 MG OR TABS 01/11/2015 - 03/15/2015 Provider: HITESH JAY MD Diagnosis: ATTN DEFIC NONHY PERACT 1 tablet every morning Last Documented On 02/08/2023 5:37PM By Lizeth Torrez MD ; [facility] Medications Administered Includes: Administered Medications in patient's chart No Administered Medications Recorded Results Includes: Results from 11/22/2023 through 11/22/2024 No Results Recorded For Specified Dates History of Present Illness History of Present Illness not supported for this document type No History of Present Illness Recorded Social History No Social History Recorded - Smoking Status Unknown Medical History Includes: Medical History in patient's chart No Medical History Recorded Family History Includes: Family History in patient's chart No Family History Recorded Review of Systems Review of Systems not [...]
--- OUTSIDE RECORDS SUMMARY | 2024-11-22 11:31 | XMS_ITS | Clinical Summary ---
Author Organization [facility] Address [address] [place] [address] Phone Care Team Providers Care Information Systems Analyst Name Role Phone Unavailable Unavailable Unavailable Reason for Visit and Chief Complaint NO SHOW Problems Includes: Problems addressed during this encounter and other active Problems All Visits Onset Date Resolved Date Provider Condition S tatus Attention Deficit Disorder Without Hyperactivity 01/11/2015 HITESH TORREZ MD Active Last Documented On 5 10:31AM ; [facility] Bipolar II Disorder 01/11/2015 HITESH JAY MD Active Last Documented On 5 9:55AM ; [facility] Esophageal Reflux 01/11/2015 HITESH Sahu MD Active Last Documented On 5 10:15AM ; [facility] Generalized Anxiety Disorder 01/11/2015 HITESH TORREZ MD Active Last Documented On 5 10:14AM ; [facility] Persistent Insomnia 01/11/2015 HITESH JAY MD Active Last Documented On 5 9:55AM ; [facility] Psychotic Disorder 01/11/2015 HITESH OLIVIA MD Active Last Documented On 5 10:32AM ; [facility] Depression 07/13/2014 HITESH TORREZ MD Ac tive Last Documented On 5 10:20AM ; [facility] Plan of Treatment No Plan of Treatment Recorded Assessments Includes: Assessments from this encounter No Assessments Recorded Medical Equipment - Implanted Devices Includes: Current Devices No Medical Equipment Recorded Medications Includes: Medications discussed during this encounter and other current Medications Current Medications (continue as prescribed) TraZODone HCl 50 MG Tablet 04/19/2015 Provider: Mirella TORREZ MD Diagnosis: PERSISTENT INSOM HAYDEE as directed -- half to one t ablet at bedtime as needed for sleep. Last Documented On 04/19/2015 4:37PM By Lizeth Torrez MD ; [facility] Focalin 10 MG Tablet 04/19/2015 Provider: HITESH TORREZ MD Diagnosis: ATTN DEFIC NONHY PERACT 1 tablet every morning Last Documented On 04/19/2015 4:14PM By Lizeth Torrez MD ; [facility] Methylphenidate HCl 20 MG Tablet 04/19/2015 Provider: HITESH TORREZ MD Diagnosis: ATTN DEFIC NONHY PERACT 1 tablet every morning Last Documented On 04/19/2015 4:25PM By Lizeth Torrez MD ; [facility] Depakote ER 500 MG Tablet, extended-release 24 hour 04/19/2015 Provider: HITESH MATUTE MD Diagnosis: BIPOLAR DISORDER NEC as directed -- 1 tab at nigh t -- may try 1/2 tab at night first before taking 1 at night --given 40 tablets Last Documented On 04/19/2015 4:41PM By Lizeth Torrez MD ; [facility] SEROquel XR 50 MG Tablet, extended-release 24 hour 03/20/2015 Provider: HITESH MATUTE MD Diagnosis: BIPOLAR DISORDER NEC 1 every evening with out food Last Documented On 03/20/2015 2:37AM By Lizeth Torrez MD ; [facility] Focalin 10 MG Tablet 03/20/2015 Provider: HITESH TORREZ MD Diagnosis: ATTN DEFIC NONHY PERACT 1 tablet every morning Last Documented On 03/20/2015 2:37AM By Lizeth Torrez MD ; [facility] One-A-Day Mens Tablet 01/11/2015 Provider: Diagnosis: Last Documented On 5 10:17AM By CRYSTAL BLANCO LPN ; [facility] Lexapro 20 MG Tablet 01/11/2015 Provider: HITESH TORREZ MD Diagnosis: GENERALIZED ANXI ETY DIS as directed --1/2 tab a day for 1 week then 1 tab a day thereafter Last Documented On 01/11/2015 1:48PM By Lizeth Torrez MD ; [facility] Claritin 10 MG Tablet 01/11/2015 Provider: Diagnosis: 1 tablet daily as needed Last Documented On 5 10:17AM By CRYSTAL BLANCO LPN ; [facility] NexIUM 40 MG Capsule, delayed-release 01/11/2015 Pro vider: Diagnosis: 1 daily as needed Last Documented On 5 10:16AM By CRYSTAL BLANCO LPN ; [facility] Medications Administered Includes: Administered Medications from [...] Location Date Check-In Time Check-Out Time Diagnosis NO SHOW HITESH TORREZ MD VICENTE-PSYCHIAT RY 05/31/2015 3:30PM 11:59PM Clinical Notes Includes: Clinical Notes from this encounter No Clinical Notes Recorded
--- OUTSIDE RECORDS SUMMARY | 2024-11-22 11:31 | XMS_ITS | Referral Summary ---
Author Organization [facility] [address] Address [address] [place] [id number] Care Team Providers Care Oracle Pl Sql Developer Name Role Phone Dm Isabel MD Unavailable Henny Abreu DO Primary Care Provider [phone] Encounters Date Type Department Care Team Description 10/14/2024 3:45 PM REGULATORY MANAGER Office Visit [facility] Surgery [facility] Medicine [address]th [place] [address] Emmy Hernandez NP Amputation of tip of finger, initial encounter (Primary Dx) 2024 2:00 PM REGULATORY MANAGER Procedure visit [facility] Surgery [address] [place] [address] 6th [place] [address] Emmy Hernandez NP Amputation of tip of finger, initial encounter from Last 3 Months Allergies No known active allergies Medications multivit,calc,m tk-ZV-P0-lycop (One-A-Day Men's Complete) 240 mcg-30 mcg- 300 [...] IM, to get follow up doses at [facility]. Cocaine abuse 03/16/2024 Assessment & Plan (03/16/2024 [...] (01/09/2022): Added automatically from request for surgery [id number] Displaced pilon fracture of right tibia, init fo r clos fx 12/21/2021 Depression 05/03/2019 Assessment & Plan (03/18/2024 3:46 PM CDT): Mood stable at this time Consult psychiatry given passive SI. Prescribing wellbutrin Immunizations Name Administration Dates Next Due Influenza, Quadrivalent, Rec ombinant, Egg Free, Preservative Free, Intramuscular 06/17/2019 Tdap 06/12/2024 Social History Tobacco Use Types Packs/Day Years [...] 03/17/2024 How often do you attend chur ch or mandaeism services? Never 03/17/2024 Do you belong to any clubs o r organizations such as bahai groups, unions, fraternal or athletic groups, or [...] place to sleep or slept in a retirement (including now)? No 12/21/2021 Housing Stability Vital Sign Answer Umair e Recorded In the last 12 months, was t here a time when you were not able to pay the mortgage or rent on time? No 03/17/2024 In the past 12 months, how m any times have you moved where you were living? 0 03/17/2024 At any time in the past 12 m [facility], were you homeless or living in a retirement (including now)? No 03/17/2024 Personal Safety Answer Date Recorded Have you ever been in or are you currently in a harmful physical or emotional relationship or is someone making you feel afraid or unsafe? Denies 06/12/2024 Sex and Gender Information Value Date Recorded Sex Assigned at Not on file Legal Sex Male 4:31 AM REGULATORY MANAGER Gender Identity Not on file Sexual Orientation [...] 06/12/2024 5:20 PM CDT Plan of Treatment Not on file Medical Devices Implanted Type Area Emergency Department Physician Device Identifier Shelf Expiration Date Model / Serial / Lot [employer] [id number] Saleem 1.6mm 6in Thread Wire Fixation - [id number] Implanted:Qty: 1 on 12/22/2021 by Dm Isabel MD at [facility] Right: Ankle [employer] [id number] / / [employer] [id number] Evos 4.7mm 40mm Full Thread Screw Bone Sterile Osteopenia - [id number] Implanted:Qty: 1 on 01/14/2022 by Charles Pena MD at [facility] Right: Tibia [employer] [id number] / / [employer] [id number] 2.7mm 4.3mm 42mm Lock Self Retain Flat Head Long Bone Small Bone - [id number] Implanted:Qty: 1 on 01/14/2022 by Charles Pena MD at [facility] Right: Tibia [employer] [id number] / / [employer] [id number] 2.7mm 4.3mm 40mm Lock Self Retain Flat Head Long Bone Small Bone - [id number] Implanted:Qty: 1 on 01/14/2022 by Charles Pena MD at [facility] Right: Tibia [employer] [id number] / / [employer] [id number] Evos 3.5mm 46mm Self Tap Lock Screw Bone Sterile - [id number] Implanted:Qty: 1 on 01/14/2022 by Charles Pena MD at [facility] Right: Tibia [employer] [id number] / / [employer] [id number] Evos 153x12.7x3.5mm 35x1.8mm 11 Hole Low Profile Variable Angle - [id number] Implanted:Qty: 1 on 01/14/2022 by Charles Pena MD at [facility] Right: Tibia [employer] [id number] / / [employer] [id number] Freeze Dried Chips 1-10mm Graft 15ml Bone Cancellous - [id number] Implanted:Qty: 1 on 01/14/2022 by Charles Pena MD at [facility] Right: Tibia [employer] 07/21/2026 [id number] / / [id number] [employer] [id number] Evos Mini 2.7mm 4.5mm 40mm Self Tap Outpatient Interviewing Clerk Long Bone Small Bone - [id number] Implanted:Qty: 1 on 01/14/2022 by Charles Pena MD at [facility] Right: Tibia [employer] [id number] / / [employer] [id number] Evos Mini 2.7mm 4.5mm 38mm Self Tap Cortex T8 Screw Bone Sterile - [id number] Implanted:Qty: 1 on 01/14/2022 by Charles Pena MD at [facility] Right: Tibia [employer] [id number] / / [employer] [id number] 2.7mm 4.5mm 42mm Self Retaining Screwdriver Self Tap Flat Head - [id number] Implanted:Qty: 2 on 01/14/2022 by Charles Pena MD at [facility] Right: Tibia [employer] [id number] / / [employer] [id number] Evos 3.5mm 65mm Self Tap Cortex Screw Bone Sterile - [id number] Implanted:Qty: 2 on 01/14/2022 by Charles Pena MD at [facility] Right: Tibia [employer] [id number] / / [employer] [id number] Evos 3.5mm 24mm Self Tap Cortex Screw Bone Sterile - [id number] Implanted:Qty: 2 on 01/14/2022 by Charles Pena MD at [facility] Right: Tibia [employer] [id number] / / [employer] [id number] Evos 3.5mm 28mm Self Tap Cortex Screw Bone Sterile - [id number] Implanted:Qty: 1 on 01/14/2022 by Charles Pena MD at [facility] Right: Tibia [employer] [id number] / / Explanted Type Area Emergency Department Physician Device Identifier Shelf Expiration Date Model / Serial / Lot [employer] [id number] Saleem .062in 9in Trocar Point One End Orthopedic Wire - [id number] Explanted:Qty: 1 on 01/14/2022 by Charles Pena MD at [facility] Right: Tibia [employer] [id number] S / / Procedures Procedure Name Priority [...] 5 PM CDT 03/17/2024 11:13 PM CDT us Joseph Martell MD LAB MICROBIOLOGY - GENE RAL ORDERABLES Final Result [facility] Department [place] [address] from Last 3 Months or Most Recently Relevant to Health Maintenance Insurance [facility] PLUS [facility] [employer] PLUS [employer] [address] [address] WORKERS COMPENSATION GENERIC [facility] [place] [phone] Advance Directives For more information, please contact: [phone] * Full Code (Latest Code Status on File) Date Activated Date Inactivated Comments 03/16/2024 7:30 AM 03/18/2024 9:43 PM * Full Code Date Activated Date Inactivated Comments 12/21/2021 8:44 AM 12/24/2021 5:[address] Sql Developer Relationship Specialty [place] [id number] [address] [address] PCP - General Family Medicine 01/09/22 [place] [id number] [address] [address] Surgeon Orthopedic Surgery 12/24/21
--- OUTSIDE RECORDS SUMMARY | 2024-11-22 11:31 | XMS_ITS | Clinical Summary ---
Author Organization [facility] Address [address] [place] [address] Phone Care Team Providers Care Occupational Health Specialist Name Role Phone Unavailable Unavailable Unavailable Reason for Visit and Chief Complaint NO SHOW Problems Includes: Problems addressed during this encounter and other active Problems All Visits Onset Date Resolved Date Provider Condition S tatus Attention Deficit Disorder Without Hyperactivity 01/11/2015 HITESH TORREZ MD Active Last Documented On 5 10:31AM ; [facility] Bipolar II Disorder 01/11/2015 HITESH JAY MD Active Last Documented On 5 9:55AM ; [facility] Esophageal Reflux 01/11/2015 HITESH Sahu MD Active Last Documented On 5 10:15AM ; [facility] Generalized Anxiety Disorder 01/11/2015 HITESH TORREZ MD Active Last Documented On 5 10:14AM ; [facility] Persistent Insomnia 01/11/2015 HITESH JAY MD Active Last Documented On 5 9:55AM ; [facility] Psychotic Disorder 01/11/2015 HITESH OLIVIA MD Active Last Documented On 5 10:32AM ; [facility] Depression 07/13/2014 HITESH TORREZ MD Ac tive Last Documented On 5 10:20AM ; [facility] Plan of Treatment No Plan of Treatment [...] 04/19/2015 4:37PM By Lizeth Torrez MD ; [facility] Focalin 10 MG Tablet 04/19/2015 Provider: HITESH TORREZ MD Diagnosis: ATTN DEFIC NONHY PERACT 1 tablet every morning Last Documented On 04/19/2015 4:14PM By Lizeth Torrez MD ; [facility] Methylphenidate HCl 20 MG Tablet 04/19/2015 Provider: HITESH TORREZ MD Diagnosis: ATTN DEFIC NONHY PERACT 1 tablet every morning Last Documented On 04/19/2015 4:25PM By Lizeth Torrez MD ; [facility] Depakote ER 500 MG Tablet, extended-release 24 hour 04/19/2015 Provider: HITESH MATUTE MD Diagnosis: BIPOLAR DISORDER NEC as directed -- 1 tab at nigh t -- may try 1/2 tab at night first before taking 1 at night --given 40 tablets Last Documented On 04/19/2015 4:41PM By Lizeth Torrez MD ; [facility] SEROquel XR 50 MG Tablet, extended-release 24 hour 03/20/2015 Provider: HITESH MATUTE MD Diagnosis: BIPOLAR DISORDER NEC 1 every evening with out food Last Documented On 03/20/2015 2:37AM By Lizeth Torrez MD ; [facility] Focalin 10 MG Tablet 03/20/2015 Provider: HITESH TORREZ MD Diagnosis: ATTN DEFIC NONHY PERACT 1 tablet every morning Last Documented On 03/20/2015 2:37AM By Lizeth Torrez MD ; [facility] One-A-Day Mens Tablet 01/11/2015 Provider: Diagnosis: Last Documented On 5 10:17AM By CRYSTAL BLANCO LPN ; [facility] Lexapro 20 MG Tablet 01/11/2015 Provider: HITESH TORREZ MD Diagnosis: GENERALIZED ANXI ETY DIS as directed --1/2 tab a day for 1 week then 1 tab a day thereafter Last Documented On 01/11/2015 1:48PM By Lizeth Torrez MD ; [facility] Claritin 10 MG Tablet 01/11/2015 Provider: Diagnosis: 1 tablet daily as needed Last Documented On 5 10:17AM By CRYSTAL BLANCO LPN ; [facility] NexIUM 40 MG Capsule, delayed-release 01/11/2015 Pro vider: Diagnosis: 1 daily as needed Last Documented On 5 10:16AM By CRYSTAL BLANCO LPN ; [facility] Medical [facility] Medications Administered Includes: Administered Medications from this [...] NO SHOW HITESH TORREZ MD VICENTE-PSYCHIAT RY 02/09/2015 4:15PM 11:59PM Clinical Notes Includes: Clinical Notes from this encounter No Clinical Notes Recorded
[2024-11-22 13:02] LABS: Hematocrit 46.9 % (42.0-52.0); Hemoglobin 15.2 g/dL (14.0-18.0); Mean Corpuscular HGB Conc 32.4 g/dl (32-36); Mean Corpuscular Hemoglobin 30.2 pg (26-34); Mean Corpuscular Volume 93.2 fl (80-100); Mean Platelet Volume 9.4 fl (7.4-10.4); Platelet Count Result 252 k/mm3 (150-375); Red Blood Count 5.03 M/mm3 (4.6-6.20); Red Cell Distribution Width 11.9 % (11.5-14.5); White Blood Count 6.7 K/mm3 (4.5-10.0)
[2024-11-22 15:33] LABS: Alanine Aminotransferase 31 U/L (6-50); Albumin Level 4.8 g/dL (3.5-5.1); Alkaline Phosphatase 56 U/L (38-126); Anion Gap 13 mmol/L (4-12); Aspartate Amino Transferase 34 U/L (17-59); Bilirubin,Total 0.8 mg/dL (0.2-1.3); Blood Urea Nitrogen 21 mg/dL (9-20); Calcium 9.9 mg/dL (8.4-10.2); Carbon Dioxide 27 mmol/L (22-30); Chloride 101 mmol/L (98-107); Cholesterol 248 mg/dL (0-200); Estimated Glomerular Filt Rate > 60; Glucose 94 mg/dL (65-110); HDL Direct 40 mg/dL; Potassium 4.3 mmol/L (3.4-5.0); Sodium 141 mmol/L (137-145); Triglycerides 141 mg/dL (<150)
[2024-11-22 15:43] LABS: LDL Cholesterol Direct 155 mg/dL
== END 2024-11-22 10:41 | disposition home or self-care (01) ==
LOC: ANHGOSHLAB 10:40
PROVIDERS: PCP Family Medicine; Visit Provider Family Medicine
DX: I10 Essential (primary) hypertension (principal); E66.9 Obesity, unspecified; Z79.899 Other long term (current) drug therapy; Z83.438 Family history of other disorder of lipoprotein metabolism and other lipidemia
CPT/HCPCS: 36415; 80053; 80061; 84443; 85027

== ENCOUNTER 2025-06-21 15:15 | Outpatient (CLI) | payer OTHER, SELFPAY ==
--- NOTE | 2025-06-21 15:30 | ECG_ITS ---
Test Date: 2025-06-21 15:22:50 Measurements Intervals Cropsey Rate: 75 P: 19 MT: 169 QRS: 19 QRSD: 81 T: 29 QT: 331 QTc: 370 Interpretive Statements SINUS RHYTHM NORMAL ELECTROCARDIOGRAM WARNING: DATA QUALITY MAY AFFECT INTERPRETATION No previous ECG available for comparison Electronically Signed On 06-22-2025 15:54:29 CDT by Khoi Foley M.D.
--- OUTSIDE RECORDS SUMMARY | 2025-06-21 16:35 | XMS_ITS | Clinical Summary ---
Author Organization [facility] Physician Office Building [address] [place] [id number] Care Team Providers Care Backup Administrative Coordinator Name Role Phone Dm Isabel MD Unavailable [phone] Henny Abreu DO Primary Care Provider [phone] Allergies No known active allergies Medications multivit,calc,m bz-AW-U5-lycop (One-A-Day Men's Complete) 240 mcg-30 mcg- 300 [...] IM, to get follow up doses at [facility]. Cocaine abuse 03/16/2024 Assessment & Plan (03/16/2024 [...] (01/09/2022): Added automatically from request for surgery [id number] Displaced pilon fracture of right tibia, init fo r clos fx 12/21/2021 Depression 05/03/2019 Assessment & Plan (03/18/2024 3:46 PM CDT): Mood stable at this time Consult psychiatry given passive SI. Prescribing wellbutrin Immunizations Immunization Administration Dates Next Due Influenza, Quadrivalent, Rec [...] Cigarettes Smokeless Tobacco: Never Social Connection and Isolation Panel Answer Date Recorded In a typical week, how many times do you talk on the phone with family, friends, or neighbors? More than three times a week 03/17/2024 How often do you get togethe r with friends or relatives? More than three times a week 03/17/2024 How often do you attend chur ch or latter-day services? Never 03/17/2024 Do you belong to any clubs o r organizations such as gnosticist groups, unions, fraternal or athletic groups, or [...] place to sleep or slept in a fpc (including now)? No 12/21/2021 PHQ-9 Answer Date Recorded PHQ-9 Total Score 1 03/17/2024 Housing Stability Vital Sign Answer Umair e Recorded In the last 12 months, was t here a time when you were not able to pay the mortgage or rent on time? No 03/17/2024 In the past 12 months, how m any times have you moved where you were living? 0 03/17/2024 At any time in the past [address] [facility], were you homeless or living in a fpc (including now)? No 03/17/2024 Personal Safety Answer Date Recorded Have you ever been in or are you currently in a harmful physical or emotional relationship or is someone making you feel afraid or unsafe? 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 Gender Identity Not on file Sexual [...] 5:20 PM CDT Height 175.3 cm (5' 9) 06/12/2024 5:20 PM CDT Body Mass Index 31.01 06/12/2024 5:20 PM CDT Plan of Treatment Health Maintenance Due Date Last Done Comments Varicella Vaccines (1 of 2 - 13+ 2-dose series) 2002 Regular Well Visit/Exam 18-64 2007 Pneumococcal vaccine <65 (1 of 2 - PCV) 2008 HPV Vaccines (1 - 3-dose SCDM series) 2016 Depression Screening 03/15/2025 03/15/2024 Influenza Vaccine (#1) 2025 08/12/2023, 2018 DTaP/Tdap/Td Vaccine (2 - Td or Tdap) 06/12/2034 Hepatitis B Screening Completed 03/17/2024 Hepatitis C Screening Completed 03/17/2024 Medical Devices Implanted Type Area Crime Scene Specialist Device Identifier Shelf Expiration Date Model / Serial / Lot [employer] [id number] Saleem 1.6mm 6in Thread Wire Fixation - [id number] Implanted:Qty: 1 on 12/22/2021 by Dm Isabel MD at [facility] Right: Ankle [employer] [id number] / / [employer] rtho [id number] Evos 4.7mm 40mm Full Thread Screw Bone Sterile Osteopenia - [id number] Implanted:Qty: 1 on 01/14/2022 by Charles Pena MD at [facility] Right: Tibia [employer] [id number] / / [employer] [id number] 2.7mm 4.3mm 42mm Lock Self Retain Flat Head Long Bone Small Bone - [id number] Implanted:Qty: 1 on 01/14/2022 by Charles Pena MD at [facility] Right: Tibia [employer] [id number] / / [employer] [id number] 2.7mm 4.3mm 40mm Lock Self Retain Flat Head Long Bone Small Bone - [id number] Implanted:Qty: 1 on 01/14/2022 by Charles Pena MD at [facility] Right: Tibia [employer] [id number] / / [employer] [id number] Evos 3.5mm 46mm Self Tap Lock Screw Bone Sterile - [id number] Implanted:Qty: 1 on 01/14/2022 by Charles Pena MD at [facility] Right: Tibia [employer] [id number] / / [employer] [id number] Evos 153x12.7x3.5mm 35x1.8mm 11 Hole Low Profile Variable Angle - [id number] Implanted:Qty: 1 on 01/14/2022 by Charles Pena MD at [facility] Right: Tibia [employer] [id number] / / [employer]osource [id number] Freeze Dried Chips 1-10mm Graft 15ml Bone Cancellous - [id number] Implanted:Qty: 1 on 01/14/2022 by Charles Pena MD at [facility] Right: Tibia [employer] 07/21/2026 [id number] / / [id number] [employer] [id number] Evos Mini 2.7mm 4.5mm 40mm Self Tap Ferry Boat Captain Long Bone Small Bone - [id number] Implanted:Qty: 1 on 01/14/2022 by Charles Pena MD at [facility] Right: Tibia [employer] [id number] / / [employer] [id number] Evos Mini 2.7mm 4.5mm 38mm Self Tap Cortex T8 Screw Bone Sterile - [id number] Implanted:Qty: 1 on 01/14/2022 by Charles Pena MD at [facility] Right: Tibia [employer] [id number] / / [employer] [id number] 2.7mm 4.5mm 42mm Self Retaining Screwdriver Self Tap Flat Head - [id number] Implanted:Qty: 2 on 01/14/2022 by Charles Pena MD at [facility] Right: Tibia [employer] [id number] / / [employer] [id number] Evos 3.5mm 65mm Self Tap Cortex Screw Bone Sterile - [id number] Implanted:Qty: 2 on 01/14/2022 by Charles Pena MD at [facility] Right: Tibia [employer] [id number] / / [employer] [id number] Evos 3.5mm 24mm Self Tap Cortex Screw Bone Sterile - [id number] Implanted:Qty: 2 on 01/14/2022 by Charles Pena MD at [facility] Right: Tibia [employer] [id number] / / [employer] [id number] Evos 3.5mm 28mm Self Tap Cortex Screw Bone Sterile - [id number] Implanted:Qty: 1 on 01/14/2022 by Charles Pena MD at [facility] Right: Tibia [employer] [id number] / / Explanted Type Area Crime Scene Specialist Device Identifier Shelf Expiration Date Model / Serial / Lot [employer] [id number] Saleem .062in 9in Trocar Point One End Orthopedic Wire - [id number] Explanted:Qty: 1 on 01/14/2022 by Charles Pena MD at [facility] Right: Tibia [employer] [id number] / / Procedures Procedure Name Priority [...] MICROBIOLOGY - GENE RAL ORDERABLES Final Result [facility] Department [place] [address] from Last 3 Months or Most Recently Relevant to Health Maintenance Insurance [facility] CHOICE PLUS [facility] HMO/PPO Address: [facility] [address] [place], [place] [address] [place] [address] BEHAVIORAL HEALTH [facility] CHOICE PLUS [facility] HMO/PPO Address: [address] [address] [place] [address] [employer] COMPENSATION GENERIC Advance Directives For more information, please contact: [phone] * Full Code (Latest Code Status on File) Date Activated Date Inactivated Comments 03/16/2024 7:30 AM 03/18/2024 9:43 PM * Full Code Date Activated Date Inactivated Comments 12/21/2021 8:44 AM 12/24/2021 5:47 PM Care Teams Backup Administrative Coordinator Relationship Specialty Start Date End Date Henny Abreu DO PCP - General Family Medicine 01/09/22 Dm Isabel MD Surgeon Orthopedic Surgery 12/24/21
--- OUTSIDE RECORDS SUMMARY | 2025-06-21 16:35 | XMS_ITS | Clinical Summary ---
Author Organization [facility] [employer] Address [address] [address] Care Team Providers Care Drill Bit Sharpener Name Role Phone Unavailable Primary Care Provider Unavailabl e Source Comments [facility],non-owned Affiliates and Associated Physician Practices is amultiple site organization consisting of ambulatory clinics and hospital sitesin [place], [place], [place] and [place]. This disclosure is being madepursuant to the Care Everywhere program and may not contain all information available regarding this patient. Last updated 18.[employer] [facility] Allergies No known active allergies Medications * This document contains information received from the source organization and may not represent a complete record from that organization. * Be aware that medications may not be up to date on this document. Alwaysverify current medications with the patient. No known medications Active Problems Problem Noted Date Diagnosed Date Depression 05/03/2019 Social History Tobacco Use Types Packs/Day Years Used Date Smoking Tobacco: Never Smokeless Tobacco: Never Sex and Gender Information Value Date Recorded Sex Assigned at Not on file Legal Sex Male 6:42 PM CDT Gender Identity Not on file Sexual Orientation [...] 11:06 AM CDT Height 177.8 cm (5' 10) 05/03/2019 11:06 AM CDT Body Mass Index 28.98 05/03/2019 11:06 AM CDT Plan of Treatment Health Maintenance Due Date Last Done Comments HIV SCREENING 2004 HEPATITIS C SCREENING 09/19/2007 DTAP/TDAP/TD VACCINES (1 - Tdap) 2008 HEPATITIS B VACCINE (1 of 3 - 19+ 3-dose series) 2008 HPV VACCINE (1 - 3-dose SCDM series) 2016 COVID-19 VACCINE (1 - 2023-2 5 season) 2024 DEPRESSION SCREENING 10/13/2024 INFLUENZA VACCINE (#1) 2025 ZOSTER VACCINE (1 of 2) 2039 HIB VACCINE Aged Out No longer eligi ble based on patient's age to complete this topic MENINGOCOCCAL (Group B) VACC INE SHARED DECISION-MAKING Aged Out No longer eligibl e based on patient's age to complete this topic MENINGOCOCCAL GROUPS A/C/Y/W VACCINE Aged Out No longer eligible b ased on patient's age to complete this topic PNEUMOCOCCAL VACCINE Aged Out No long er eligible based on patient's age to complete this topic Insurance [employer] Advance Directives * Full Code (Latest Code Status on File) Date Activated Date Inactivated Comments 05/03/2019 8:33 AM 05/03/2019 6:09 PM
== END 2025-06-21 15:16 | disposition home or self-care (01) ==
LOC: ANHSURGERY 15:17
PROVIDERS: PCP Family Medicine; Visit Provider Urology
DX: I10 Essential (primary) hypertension (principal)
CPT/HCPCS: 93005

== ENCOUNTER 2025-06-23 01:08 | Day surgery (SDC) | payer OTHER, SELFPAY ==
--- NOTE | 2025-06-16 07:23 | P.HP_ITS ---
History of Present Illness History of Present Illness Consent: Risks, benefits, and alternatives have been discussed and questions answered. Patient agrees to proceed with procedure. Chief complaint: Urethral Stricture Narrative: Carlton Ayala is a 34 year old male with an 18 month history of obstructive irritable voiding symptoms (urinary hesitancy intermittency diminished stream). This has been refractory to attempts at medical management tamsulosin. Given the likelihood of urethral stricture we have for gone cystoscopy in the office and plan cystoscopy with urethral dilatation under anesthesia Review of Systems Review of Systems: All systems reviewed & are unremarkable except as noted in HPI and below PMFSH Past Medical History Medical History Hernia GERD (gastroesophageal reflux disease) Arthritis Surgical History Surgical History History of ankle surgery Family History Family History Father Diabetes mellitus Hypertension Cancer Mother Thyroid condition Grandparent Alcoholism Diabetes mellitus Hypertension Cerebrovascular accident Social History Social History Years smoked: 7 Smoking status: Former smoker Alcohol intake: current Substance use: current Substance use type: marijuana and crack/cocaine Lack of Transportation: No Lack of Food: Never True Current Housing: I Have Housing Concerned About Future Housing: No Difficulty Paying Gas/Electric Bills: No Difficulty Paying for Meds: No Currently Unemployed: No Education: High School Diploma/GED Difficulty w/ Childcare or Family Care: No Meds Home Medications and Allergies Home Medications ?Medication ?Instructions ?Recorded ?Confirmed ?Type simvastatin 10 mg tablet 10 mg PO DAILY #90 tabs 11/1303/14/25 Rx omeprazole 20 mg capsule,delayed See Rx Instructions . Route 01/03/25 03/14/25 Rx release .COMPLEX #90 caps bupropion HCl 150 mg 24 hr tablet, 150 mg PO QAM #90 t abs 02/14/25 03/14/25 Rx extended release multivitamin 1 tablet PO DAILY 03/14/25 0 03/14/25 History lisinopril 10 mg tablet See Rx Instructions .Route 0 04/01/25 Rx .COMPLEX #90 tabs Allergies Allergy/AdvReac Type Severity Reaction Status Date / Time No Known Allergies Allergy Mild Verified 03/14/25 15:27 Exam Const: General: no acute distress Resp: Effort & Inspection: normal respiratory effort GI: Inspection: non-distended GI Palp: No abdominal tenderness and No Guarding due to palpation present (GI) Auscultation: normal bowel sounds Assessment and Plan Assessment and plan (1) Urinary hesitancy: Code(s): R39.11 - Hesitancy of micturition Status: Acute Assessment and Plan: * Cystoscopy with urethral dilatation
[2025-06-16 15:24] VITALS: BMI 28.1
--- NOTE | 2025-06-16 15:32 | PC.NURSE ---
Report to the Outpatient Waiting Room, entrance under the green pavilion located off [facility], at time _1100_ on date _[id number]_. Planned Procedure Time: _1pm_.? Time changes happen often and if your time is changed the preop area will call you the afternoon before. - You and your visitor will be asked to self-screen and do not enter if you have any COVID symptoms. Please call surgeon if you need to reschedule. - A mask is optional within the hospital at this time. Patients may have clear liquids (water, carbonated beverages, clear teas, apple juice) until 3 hours prior to surgery with a maximum of 20 ounces. - No food from midnight until time of surgery and no smoking, or chewing tobacco (or any form of nicotine). No chewing gum, candy or mints. Take only the following medications with a SIP of water on the morning of surgery: __Bupropion____ DO NOT STOP ANY OF YOUR OTHER PRESCRIPTION MEDICATIONS PRIOR TO SURGERY EXCEPT THE FOLLOWING Hold all vitamins and supplements for 3 days per anesthesiologist. Medications to discontinue per physician Date to take last dose Please no make-up, nail turkmen, hairspray, perfume, deodorant, or body powder the day of surgery.? No jewelry (including any body piercings) or valuables the day of surgery, leave them at home.? Please take a shower or bath the night before, or the morning of, surgery with an antibacterial soap.? Wear comfortable, loose fitting clothing.? - Jewelry must be removed prior to entering the operating room.? Rings and piercings that are not removed may be cut off. - The hospital will not accept responsibility for valuables.? - Please leave all valuables, including medications, at home the day of surgery. If you are going home after surgery, a licensed regional company truck driver must drive you home.? - NO public transportation without another adult if you receive anesthesia. - We recommend that an adult stay with you for 24 hours following discharge. - We also recommend that you do not drive, make important decision, drink alcoholic beverages, or take any drugs that were not prescribed by your health care provider for at least 24 hours after your discharge time. Follow any additional instructions given to you from your surgeon. Telephone instructions given to __Nilamtt___and asked if any additional questions and then verbalized understanding. Patient advised to call surgeon office or pre surgery nurse liaison [phone] if any additional questions.
[2025-06-23] VITALS (8 sets, daily range): BP systolic 128–160; BP diastolic 67–110; PULSE 73–116; RESP 16–24; TEMP 36.3; O2SAT 99–100
--- OUTSIDE RECORDS SUMMARY | 2025-06-23 01:12 | XMS_ITS | Clinical Summary ---
Author Organization [facility] [employer] Address [address] [place] [address] Care Team Providers Care 911 Dispatcher Name Role Phone Unavailable Primary Care Provider Unavailabl e Source Comments [facility] [employer],non-owned Affiliates and Associated Physician Practices is amultiple site organization consisting of ambulatory clinics and hospital sitesin [place], [place], [place] and [place]. This disclosure is being madepursuant to the Care Everywhere program and may not contain all information available regarding this patient. Last updated 18.[employer] Allergies No known active allergies Medications * [...]
--- OUTSIDE RECORDS SUMMARY | 2025-06-23 01:12 | XMS_ITS | Clinical Summary ---
Author Organization [facility] Phys[facility] [address] [place] [phone] Care Team Providers Care Draughtsman Name Role Phone Dm Isabel MD Unavailable [phone] Henny Abreu DO Primary Care Provider [phone] Allergies No known active allergies Medications multivit,calc,m ag-EV-G8-lycop (One-A-Day Men's Complete) 240 mcg-30 mcg- 300 [...] to get follow up doses at [facility]. Cocaine abuse 03/16/2024 Assessment & Plan [...] (01/09/2022): Added automatically from request for surgery [id number] Displaced pilon fracture of right tibia, init [...] often do you attend chur ch or restorationist services? Never 03/17/2024 Do you belong to any clubs o r organizations such as confucianist groups, unions, fraternal or athletic groups, or [...] place to sleep or slept in a fci (including now)? No 12/21/2021 PHQ-9 Answer Date [...] any time in the past 12 m [facility], were you homeless or living in a fci (including now)? No 03/17/2024 Personal Safety Answer Date Recorded Have you ever been in or are you currently in a harmful physical or emotional relationship or is someone making you feel afraid or unsafe? 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 Gender Identity Not on file Sexual Orientation [...] Completed 03/17/2024 Medical Devices Implanted Type Area Motorcycle Subassembler Device Identifier Shelf Expiration Date Model / Serial / Lot [employer] [id number] Saleem 1.6mm 6in Thread Wire Fixation - [id number] Implanted:Qty: 1 on 12/22/2021 by Dm Isabel MD at [facility] Right: Ankle [employer] [id number] / / [employer] [id number] Evos 4.7mm 40mm Full Thread Screw Bone Sterile Osteopenia - [id number] Implanted:Qty: 1 on 01/14/2022 by Charles Pena MD at [facility] Right: Tibia [employer] [id number] / / [employer] [id number] 2.7mm 4.3mm 42mm Lock Self Retain Flat Head Long Bone Small Bone - [id number] Implanted:Qty: 1 on 01/14/2022 by Charles Pena MD at [facility] Right: Tibia [employer] [id number] / / [employer] [id number] 2.7mm 4.3mm 40mm Lock Self Retain Flat Head Long Bone Small Bone - [id number] Implanted:Qty: 1 on 01/14/2022 by Charles Pena MD at [facility] Right: Tibia [employer] [id number] / / [employer] [id number] Evos 3.5mm 46mm Self Tap Lock Screw Bone Sterile - [id number] Implanted:Qty: 1 on 01/14/2022 by Charles Pena MD at [facility] Right: Tibia [employer] [id number] / / [employer] [id number] Evos 153x12.7x3.5mm 35x1.8mm 11 Hole Low Profile Variable Angle - [id number] Implanted:Qty: 1 on 01/14/2022 by Charles Pena MD at [facility] Right: Tibia [employer] [id number] / / [employer] [id number] Freeze Dried Chips 1-10mm Graft 15ml Bone Cancellous - [id number] Implanted:Qty: 1 on 01/14/2022 by Charles Pena MD at [facility] Right: Tibia [employer] 07/21/2026 [id number] / / [id number] [employer] [id number] Evos Mini 2.7mm 4.5mm 40mm Self Tap Immunopathologist Long Bone Small Bone - [id number] Implanted:Qty: 1 on 01/14/2022 by Charles Pena MD at [facility] Right: Tibia [employer] [id number] / / [employer] [id number] Evos Mini 2.7mm 4.5mm 38mm Self Tap Cortex T8 Screw Bone Sterile - [id number] Implanted:Qty: 1 on 01/14/2022 by Charles Pena MD at [facility] Right: Tibia [employer] [id number] / / [employer] [id number] 2.7mm 4.5mm 42mm Self Retaining Screwdriver Self Tap Flat Head - [id number] Implanted:Qty: 2 on 01/14/2022 by Charles Pena MD at [facility] Right: Tibia [employer] [id number] / / [employer] [id number] Evos 3.5mm 65mm Self Tap Cortex Screw Bone Sterile - [id number] Implanted:Qty: 2 on 01/14/2022 by Charles Pena MD at [facility] Right: Tibia [employer] [id number] / / [employer] [id number] Evos 3.5mm 24mm Self Tap Cortex Screw Bone Sterile - [id number] Implanted:Qty: 2 on 01/14/2022 by Charles Pena MD at [facility] Right: Tibia [employer] [id number] / / [employer] [id number] Evos 3.5mm 28mm Self Tap Cortex Screw Bone Sterile - [id number] Implanted:Qty: 1 on 01/14/2022 by Charles Pena MD at [facility] Right: Tibia [employer] [id number] / / Explanted Type Area Motorcycle Subassembler Device Identifier Shelf Expiration Date Model / Serial / Lot [employer] [id number] Saleem .062in 9in Trocar Point One End Orthopedic Wire - [id number] Explanted:Qty: 1 on 01/14/2022 by Charles Pena MD at [facility] Right: Tibia [employer] [id number] / / Procedures Procedure Name Priority [...] MICROBIOLOGY - GENE RAL ORDERABLES Final Result [facility] Department [place] [address] from Last 3 Months or Most Recently Relevant to Health Maintenance Insurance [facility] [place] [address] [place] [address] BEHAVIORAL HEALTH [facility] CHOICE PLUS [employer] COMPENSATION GENERIC Advance Directives For more information, please contact: [phone] * Full Code (Latest Code Status on File) Date Activated Date Inactivated Comments 03/16/2024 7:30 AM 03/18/2024 9:43 PM * Full Code Date Activated Date Inactivated Comments 12/21/2021 8:44 AM 12/24/2021 5:47 PM Care Teams Draughtsman Relationship Specialty Start Date End Date Henny Abreu DO PCP - General Family Medicine 01/09/22 Dm Isabel MD Surgeon Orthopedic Surgery 12/24/21
--- NOTE | 2025-06-23 06:01 | WPDHPUPDATE1 ---
History and Physical Update Update Date/Time: 06/23/25 06:01 History and Physical has been reviewed, including an updated exam of the patient. There are NO changes in the patient's condition. Risks, benefits, and alternatives have been discussed and questions answered. Patient agrees to proceed with procedure.
[2025-06-23] MEDS: LACTATED RINGERS 1,000 ML 30 ML IV CONT ×2 (10:25→12:46)
--- NOTE | 2025-06-23 11:01 | P.PNAN_ITS ---
Anes - Initial Pre Proc Eval Procedure: Operation Date: 06/23/25 12:00 Proposed Procedures p Cystoscopy, Urethral Dilatation - Rupert Romero MD Date/Time: 06/23/25 11:01 Surgeon: Rupert Romero MD Pre Op Diagnosis: Urethral Stricture Patient Data Age: 34 Gender: M Height: 1.75 m Weight: 86.1 kg Last Vital Signs Temp 36.3 C L 06/23/25 10:05 Pulse 73 06/23/25 10:05 Resp 16 06/23/25 10:05 BP 140/67 06/23/25 10:05 Pulse Ox 100 06/23/25 10:05 O2 Del Method Room Air 06/23/25 10:05 Allergies Allergy/AdvReac Type Severity Reaction Status Date / Time No Known Allergies Allergy Mild Verified 06/23/25 10:43 Home Medications ?Medication ?Instructions ?Recorded ?Confirmed ?Type omeprazole 20 mg capsule,delayed See Rx Instructions . Route 01/03/25 06/23/25 Rx release .COMPLEX #90 caps bupropion HCl 150 mg 24 hr tablet, 150 mg PO QAM #90 t abs 02/14/25 06/23/25 Rx extended release multivitamin 1 tablet PO DAILY 03/14/25 0 06/23/25 History lisinopril 10 mg tablet See Rx Instructions .Route 0 04/01/25 06/23/25 Rx .COMPLEX #90 tabs Patient hx anesthesia problems: none Family hx anesthesia problems: none Results Review: All pre-operative results and documents have been reviewed as part of the pre- operative evaluation. [facility] Past Medical History Medical History Hernia GERD (gastroesophageal reflux disease) Arthritis Surgical History Surgical History History of ankle surgery Family History Family History Father Diabetes mellitus Hypertension Cancer Mother Thyroid condition Grandparent Alcoholism Diabetes mellitus Hypertension Cerebrovascular accident Social History Social History Years smoked: 10 Smoking status: Former smoker Tobacco type: cigarettes Smoking end date: 03/16/24 Alcohol intake: former Substance use: current Substance use type: marijuana Other substance usage details: Daily Lack of Transportation: No Lack of Food: Never True Current Housing: I Have Housing Concerned About Future Housing: No Difficulty Paying Gas/Electric Bills: No Difficulty Paying for Meds: No Currently Unemployed: No Education: High School Diploma/GED Difficulty w/ Childcare or Family Care: No Living arrangements: with family Spiritual care concerns: No Anes - Eval Final PreProcedure Day of Procedure 06/23/25 11:01 Patient weight: overweight Heart: regular rate and rhythm Lungs: clear to auscultation Airway: Mallampati scale class II and special considerations (cemented tooth front top left tooth) Neurological: alert and oriented Last oral intake: >/= 8 hours ASA classification: III Emergent: no Anesthetic plan: proceed Anesthesia type and monitoring: general LMA and standard monitoring Results Review: All pre-operative results and documents have been reviewed as part of the pre- operative evaluation. Informed Consent: The patient's anesthetic plan and its attendant risks and benefits were dis cussed with the patient/family/POA. Questions were solicited and answers provided to the satisfaction of the patient/family/POA.
[2025-06-23] MEDS: ceFAZolin 2 GM in SODIUM CHLORIDE 0.9% IV 50 ML 100 ML IVPB (11:35)
[2025-06-23] MEDS: LIDOCAINE 2% GEL UROJET 10 ML PKG MUCOUS MEM (11:51)
[2025-06-23] MEDS: KETOROLAC 30 MG/ML VIAL (*BKC) IV PUSH (12:03)
--- NOTE | 2025-06-23 12:20 | P.OP_ITS ---
Procedure Note - Detailed Date of Procedure 06/23/25 Pre-op Diagnosis Urethral Stricture Post-op Diagnosis Other (1. Fossa navicular stricture 2. Bulbar urethral stricture ) Procedure Performed Cystoscopy, urethral dilatation Surgeon Rupert Romero MD Anesthesia MAC Description of Procedure Patient brought the operative suite was prepped draped in routine sterile fashion while in dorsal lithotomy position after the uneventful induction general anesthetic. 2% xylocaine jelly was introduced intraurethrally. I attempted flexible cystoscopy with a 16 F flexible cystoscope but was unable because of a fossa navicular stricture. I dilated that to 20 F with Mildred sounds. Cystoscopy with a 16 F flexible cystoscope then revealed a 2nd bulbar urethral stricture. Placed a 0.035 in glidewire into his bladder and dilated both from 16 F to 26 F with disposable urethral dilators. Repeat cystoscopy steven wed no significant urethral or bladder injury. I did place a stent 18 F urethral catheter which I attended removed before he is discharged today
[2025-06-23] MEDS: fentaNYL CITRATE INJ (*CRX) 100 MCG/2 ML VIAL 25 MCG IV PUSH ×8 (12:24→12:55)
[2025-06-23] MEDS: oxyCODONE HCL (*CRX) 5 MG TAB IR PO (13:37)
== END 2025-06-23 13:55 | disposition home or self-care (01) ==
PROVIDERS: PCP Family Medicine; Visit Provider Urology
PROC: 0T7D8ZZ Dilation of Urethra, Via Natural or Artificial Opening Endoscopic (ICD-10-PCS; CPT 52281; principal; 2025-06-23 12:00)
DX: N35.912 Unspecified bulbous urethral stricture, male (principal); K21.9 Gastro-esophageal reflux disease without esophagitis; M19.90 Unspecified osteoarthritis, unspecified site; F12.90 Cannabis use, unspecified, uncomplicated; F14.90 Cocaine use, unspecified, uncomplicated; Z98.890 Other specified postprocedural states; Z87.891 Personal history of nicotine dependence; Z80.9 Family history of malignant neoplasm, unspecified
CPT/HCPCS: 52281; J0690; A9270; C1726; C1769; J1100; J1885; J2003; J2250; J2405; J2704; J3010; J7120

== ENCOUNTER 2025-08-23 15:16 | Outpatient (CLI) | payer OTHER, SELFPAY ==
--- OUTSIDE RECORDS SUMMARY | 2025-08-23 15:21 | XMS_ITS | Clinical Summary ---
Author Organization [facility] [address] [place] [id number] Care Team Providers Care Tank Calibrator Name Role Phone Dm Isabel MD Unavailable [phone] Henny Abreu DO Primary Care Provider [phone] Allergies No known active allergies Medications multivit,calc,m br-XW-J0-lycop (One-A-Day Men's Complete) 240 mcg-30 mcg- 300 [...] IM, to get follow up doses at [facility]. Cocaine abuse 03/16/2024 Assessment & Plan (03/16/2024 [...] (01/09/2022): Added automatically from request for surgery [id number] Displaced pilon fracture of right tibia, init [...] any clubs o r organizations such as synagogue groups, unions, fraternal or athletic groups, or [...] place to sleep or slept in a longterm (including now)? No 12/21/2021 PHQ-9 Answer Date [...] any time in the past 12 m [facility], were you homeless or living in a longterm (including now)? No 03/17/2024 Personal Safety Answer Date Recorded Have you ever been in or are you currently in a harmful physical or emotional relationship or is someone making you feel afraid or unsafe? 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 Gender Identity Not on file Sexual Orientation [...] Completed 03/17/2024 Medical Devices Implanted Type Area Production Miner Device Identifier Shelf Expiration Date Model / Serial / Lot [employer] [id number] Saleem 1.6mm 6in Thread Wire Fixation - [id number] Implanted:Qty: 1 on 12/22/2021 by Dm Isabel MD at [facility] Right: Ankle [employer] [id number] / / Mc[employer]ara [employer] Nephew[employer] rtho [id number] Evos 4.7mm 40mm Full Thread Screw Bone Sterile Osteopenia - [id number] Implanted:Qty: 1 on 01/14/2022 by Charles Pena MD at [facility] Right: Tibia [employer]Or [employer] [id number] / / [employer] [id number] 2.7mm 4.3mm 42mm Lock Self Retain Flat Head Long Bone Small Bone - [id number] Implanted:Qty: 1 on 01/14/2022 by Charles Pena MD at [facility] Right: Tibia [employer]Or [employer] [id number] / / [employer]o [id number] 2.7mm 4.3mm 40mm Lock Self Retain Flat Head Long Bone Small Bone - [id number] Implanted:Qty: 1 on 01/14/2022 by Charles Pena MD at [facility] Right: Tibia [employer]Or [employer] [id number] / / [employer]o [id number] Evos 3.5mm 46mm Self Tap Lock Screw Bone Sterile - [id number] Implanted:Qty: 1 on 01/14/2022 by Charles Pena MD at [facility] Right: Tibia [employer]Or [employer] [id number] / / [employer] [id number] Evos 153x12.7x3.5mm 35x1.8mm 11 Hole Low Profile Variable Angle - [id number] Implanted:Qty: 1 on 01/14/2022 by Charles Pena MD at [facility] Right: Tibia [employer]Or [employer] [id number] / / [employer]osource [id number] Freeze Dried Chips 1-10mm Graft 15ml Bone Cancellous - [id number] Implanted:Qty: 1 on 01/14/2022 by Charles Pena MD at [facility] Right: Tibia [employer] 07/21/2026 [id number] / / [id number] [employer] [id number] Evos Mini 2.7mm 4.5mm 40mm Self Tap Teacher Physically Impaired Long Bone Small Bone - [id number] Implanted:Qty: 1 on 01/14/2022 by Charles Pena MD at [facility] Right: Tibia [employer] [id number] / / [employer] [id number] Evos Mini 2.7mm 4.5mm 38mm Self Tap Cortex T8 Screw Bone Sterile - [id number] Implanted:Qty: 1 on 01/14/2022 by Charles Pena MD at [facility] Right: Tibia [employer]Or [employer] [id number] / / [employer] [id number] 2.7mm 4.5mm 42mm Self Retaining Screwdriver Self Tap Flat Head - [id number] Implanted:Qty: 2 on 01/14/2022 by Charles Pena MD at [facility] Right: Tibia [employer] [id number] / / [employer] [id number] Evos 3.5mm 65mm Self Tap Cortex Screw Bone Sterile - [id number] Implanted:Qty: 2 on 01/14/2022 by Charles Pena MD at [facility] Right: Tibia [employer] [id number] / / [employer] [id number] Evos 3.5mm 24mm Self Tap Cortex Screw Bone Sterile - [id number] Implanted:Qty: 2 on 01/14/2022 by Charles Pena MD at [facility] Right: Tibia [employer]Or [employer] [id number] / / [employer]o [id number] Evos 3.5mm 28mm Self Tap Cortex Screw Bone Sterile - [id number] Implanted:Qty: 1 on 01/14/2022 by Charles Pena MD at [facility] Right: Tibia [employer]Or tho [id number] / / Explanted Type Area Production Miner Device Identifier Shelf Expiration Date Model / Serial / Lot [employer] [id number] Saleem .062in 9in Trocar Point One End Orthopedic Wire - [id number] Explanted:Qty: 1 on 01/14/2022 by Charles Pena MD at [facility] Right: Tibia [employer] [id number] / / Procedures Procedure Name Priority [...] MICROBIOLOGY - GENE RAL ORDERABLES Final Result Performing Organization Address City/State/[facility] Co de Phone Number [facility] Department [place] [address] from Last 3 Months or Most Recently Relevant to Health Maintenance Insurance [facility] CHOICE PLUS [facility] HMO/PPO Address: [facility] [address] [place], [place] [id number] [place] [address] BEHAVIORAL HEALTH [facility] CHOICE PLUS [facility] HMO/PPO Address: [address] [address] [place] [address] [employer] COMPENSATION GENERIC Advance Directives For more information, please contact: [phone] * Full Code (Latest Code Status on File) Date Activated Date Inactivated Comments 03/16/2024 7:30 AM 03/18/2024 9:43 PM * Full Code Date Activated Date Inactivated Comments 12/21/2021 8:44 AM 12/24/2021 5:47 PM Care Teams Tank Calibrator Relationship Specialty Start Date End Date Henny Abreu DO PCP - General Family Medicine 01/09/22 Dm Isabel MD Surgeon Orthopedic Surgery 12/24/21
--- OUTSIDE RECORDS SUMMARY | 2025-08-23 15:21 | XMS_ITS | Clinical Summary ---
Author Organization [facility] [employer] Address [address] [place] [address] Care Team Providers Care Glucose And Syrup Weigher Name Role Phone Unavailable Primary Care Provider Unavailabl e Source Comments [facility] [employer],non-owned Affiliates and Associated Physician Practices is amultiple site organization consisting of ambulatory clinics and hospital sitesin [place], [place], [place] and [place]. This disclosure is being madepursuant to the Care Everywhere program and may not contain all information available regarding this patient. Last updated 18.[employer] Allergies No known active allergies Medications * [...] VACCINE (1 - 3-dose SCDM series) 2016 DEPRESSION SCREENING 10/13/2024 COVID-19 VACCINE (1 - 2023-2 5 season) 2025 INFLUENZA VACCINE (#1) 2025 ZOSTER VACCINE (1 [...]
[2025-08-23 18:58] LABS: Magnesium 2.1 mg/dL (1.6-2.3)
[2025-08-23 19:14] LABS: Hematocrit 40.2 % (42.0-52.0); Hemoglobin 13.3 g/dL (14.0-18.0); Mean Corpuscular HGB Conc 33.1 g/dl (32-36); Mean Corpuscular Hemoglobin 29.7 pg (26-34); Mean Corpuscular Volume 89.7 fl (80-100); Platelet Count Result 216 k/mm3 (150-375); Red Blood Count 4.48 M/mm3 (4.6-6.20); White Blood Count 6.1 K/mm3 (4.5-10.0)
[2025-08-23 20:22] LABS: Vitamin B12 541.0 pg/mL (239-931)
[2025-08-23 20:39] LABS: Iron 57 ug/dL (49-181); Percent Iron Saturation 19 % (20-50)
== END 2025-08-23 15:17 | disposition home or self-care (01) ==
PROVIDERS: PCP Family Medicine; Visit Provider Nurse Practitioner
DX: E55.9 Vitamin D deficiency, unspecified (principal); R53.83 Other fatigue
CPT/HCPCS: 36415; 82306; 82607; 82746; 83540; 83550; 83735; 85027

== ENCOUNTER 2025-09-27 08:34 | Outpatient (CLI) | payer OTHER, SELFPAY ==
--- OUTSIDE RECORDS SUMMARY | 2025-09-27 09:01 | XMS_ITS | Clinical Summary ---
Author Organization [facility] [employer] Address [address] [place] [address] Care Team Providers Care Breeder Service Technician Name Role Phone Unavailable Primary Care Provider Unavailabl e Source Comments [facility] [employer],non-owned Affiliates and Associated Physician Practices is amultiple site organization consisting of ambulatory clinics and hospital sitesin [place], [place], [place]. This disclosure is being madepursuant to the Care Everywhere program and may not contain all information available regarding this patient. Last updated 18.[employer] Allergies No known active allergies Medications * [...] DEPRESSION SCREENING 10/13/2024 COVID-19 VACCINE (1 - 2024-2 6 season) 2025 INFLUENZA VACCINE (#1) 2025 ZOSTER [...]
--- OUTSIDE RECORDS SUMMARY | 2025-09-27 09:01 | XMS_ITS | Clinical Summary ---
[facility] Organization [facility] [address] [place] [id number] Care Team Providers Care Welt Pocket Machine Operator Name Role Phone Dm Isabel MD Unavailable [phone] Henny Abreu DO Primary Care Provider [phone] Allergies No known active allergies Medications multivit,calc,m cy-YJ-N3-lycop (One-A-Day Men's Complete) 240 mcg-30 mcg- 300 [...] IM, to get follow up doses at [facility]. Cocaine abuse 03/16/2024 Assessment & Plan [...] (01/09/2022): Added automatically from request for surgery [id number] Displaced pilon fracture of right tibia, init [...] often do you attend chur ch or pentecostalism services? Never 03/17/2024 Do you belong to any clubs o r organizations such as nondenominational groups, unions, fraternal or athletic groups, or [...] place to sleep or slept in a penitentiary (including now)? No 12/21/2021 PHQ-9 Answer Date [...] any time in the past [address] [facility], were you homeless or living in a penitentiary (including now)? No 03/17/2024 Personal Safety Answer Date Recorded Have you ever been in or are you currently in a harmful physical or emotional relationship or is someone making you feel afraid or unsafe? 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 Gender Identity Not on file Sexual Orientation [...] Completed 03/17/2024 Medical Devices Implanted Type Area Bowl Turner Device Identifier Shelf Expiration Date Model / Serial / Lot [employer] [id number] Saleem 1.6mm 6in Thread Wire Fixation - [id number] Implanted:Qty: 1 on 12/22/2021 by Dm Isabel MD at [facility] Right: Ankle [employer] [id number] / / [employer] [id number] Evos 4.7mm 40mm Full Thread Screw Bone Sterile Osteopenia - [id number] Implanted:Qty: 1 on 01/14/2022 by Charles Pena MD at [facility] Right: Tibia [employer]Or [employer] [id number] / / [employer]o [id number] 2.7mm 4.3mm 42mm Lock Self Retain Flat Head Long Bone Small Bone - [id number] Implanted:Qty: 1 on 01/14/2022 by Charles Pena MD at [facility] Right: Tibia [employer]Or [employer] [id number] / / [employer] rtho [id number] 2.7mm 4.3mm 40mm Lock Self Retain Flat Head Long Bone Small Bone - [id number] Implanted:Qty: 1 on 01/14/2022 by Charles Pena MD at [facility] Right: Tibia [employer] [id number] / / [employer]o [id number] Evos 3.5mm 46mm Self Tap Lock Screw Bone Sterile - [id number] Implanted:Qty: 1 on 01/14/2022 by Charles Pena MD at [facility] Right: Tibia [employer] [id number] / / [employer]o [id number] Evos 153x12.7x3.5mm 35x1.8mm 11 Hole Low Profile Variable Angle - [id number] Implanted:Qty: 1 on 01/14/2022 by Charles Pena MD at [facility] Right: Tibia [employer]Or [employer] [id number] / / [employer] [id number] Freeze Dried Chips 1-10mm Graft 15ml Bone Cancellous - [id number] Implanted:Qty: 1 on 01/14/2022 by Charles Pena MD at [facility] Right: Tibia [employer] 07/21/2026 [id number] / / [id number] [employer]hew[employer]o [id number] Evos Mini 2.7mm 4.5mm 40mm Self Tap Electrician Apprentice [employer]house Long Bone Small Bone - [id number] Implanted:Qty: 1 on 01/14/2022 by Charles Pena MD at [facility] Right: Tibia [employer]Or [employer] [id number] / / [employer]o [id number] Evos Mini 2.7mm 4.5mm 38mm Self Tap Cortex T8 Screw Bone Sterile - [id number] Implanted:Qty: 1 on 01/14/2022 by Charles Pena MD at [facility] Right: Tibia [employer] [id number] / / [employer]o [id number] 2.7mm 4.5mm 42mm Self Retaining Screwdriver Self Tap Flat Head - [id number] Implanted:Qty: 2 on 01/14/2022 by Charles Pena MD at [facility] Right: Tibia [employer] [id number] / / [employer]o [id number] Evos 3.5mm 65mm Self Tap Cortex Screw Bone Sterile - [id number] Implanted:Qty: 2 on 01/14/2022 by Charles Pena MD at [facility] Right: Tibia [employer] [id number] / / [employer] [id number] Evos 3.5mm 24mm Self Tap Cortex Screw Bone Sterile - [id number] Implanted:Qty: 2 on 01/14/2022 by Charles Pena MD at [facility] Right: Tibia [employer] [id number] / / [employer]o [id number] Evos 3.5mm 28mm Self Tap Cortex Screw Bone Sterile - [id number] Implanted:Qty: 1 on 01/14/2022 by Charles Pena MD at [facility] Right: Tibia [employer]Or [employer] [id number] / / Explanted Type Area Bowl Turner Device Identifier Shelf Expiration Date Model / Serial / Lot [employer] [id number] Saleem .062in 9in Trocar Point One End Orthopedic Wire - [id number] Explanted:Qty: 1 on 01/14/2022 by Charles Pena MD at [facility] Right: Tibia [employer] [id number] / / Procedures Procedure Name Priority [...] RAL ORDERABLES Final Result Performing Organization Address City/State/[facility] Co de Phone Number [facility] [place] [address] from Last 3 Months or Most Recently Relevant to Health Maintenance Insurance [facility] [place] [address] BEHAVIORAL HEALTH [facility] CHOICE PLUS [employer] COMPENSATION GENERIC Advance Directives For more information, please contact: [phone] * Full Code (Latest Code Status on File) Date Activated Date Inactivated Comments 03/16/2024 7:30 AM 03/18/2024 9:43 PM * Full Code Date Activated Date Inactivated Comments 12/21/2021 8:44 AM 12/24/2021 5:47 PM Care Teams Welt Pocket Machine Operator Relationship Specialty Start Date End Date Henny Abreu DO PCP - General Family Medicine 01/09/22 Dm Isabel MD Surgeon Orthopedic Surgery 12/24/21
[2025-09-27 19:15] LABS: Cholesterol 205 mg/dL (0-200); HDL Direct 44 mg/dL; Triglycerides 278 mg/dL (<150)
== END 2025-09-27 08:35 | disposition home or self-care (01) ==
LOC: ANHGOSHLAB 08:35
PROVIDERS: PCP Family Medicine; Visit Provider Family Medicine
DX: E78.5 Hyperlipidemia, unspecified (principal)
CPT/HCPCS: 36415; 80061